=== PATIENT | female | born 1950 | race Caucasian/White ===

== ENCOUNTER 2016-11-02 11:53 | Emergency (ER) | payer OTHER ==
[~2016-11-02] VITALS: Wt 105.0 kg
[~2016-11-02 11:53] MED LIST: AMLO-218 PO; APRE1TAB2 PO; ASPI-664 PO; CHOL2000 PO; HYD25 PO; HYDR-906 PO; LEVO75TA65 PO; LOSA100T7 PO; MULTI PO; POTA20TA8 PO; TAMS0.4C2 PO
[2016-11-02] MEDS ORDERED: KETOROLAC 30 MG INJ IM STA (14:47)
[2016-11-02 15:31] LABS: ADD UMIC YES; URINE BILIRUBIN (Dip) NEGATIVE (NEGATIVE); URINE BLOOD (Dip) 1+ (NEGATIVE); URINE COLOR LT. YELLOW (YELLOW); URINE GLUCOSE (Dip) NEGATIVE (NEGATIVE); URINE KETONES (Dip) NEGATIVE (NEGATIVE); URINE LEUKOCYTE ESTERASE (Dip) TRACE (NEGATIVE); URINE NITRITE (Dip) NEGATIVE (NEGATIVE); URINE TOTAL PROTEIN (Dip) 1+ (NEGATIVE); URINE UROBILINOGEN (Dip) 0.2 E.U./dL (0.1-1.0)
--- NOTE | 2016-11-02 15:51 | RADRPT ---
PROCEDURE: CT Abdomen and Pelvis without contrast. CLINICAL INDICATION: Abdominal and pelvic pain. TECHNIQUE: CT scan of the abdomen and pelvis without contrast was performed. Coronal and sagittal reformatted images were obtained from the axial source images. Images were reviewed on a high-resolu tion PACS workstation. Total exam DLP is 982.42 mGy-cm. CTDIvol is 16.93 mGy. One or more of the f ollowing dose reduction techniques were used: Automated exposure control, adjustment of the mA and/o r kV according to patient size, use of iterative reconstruction technique. COMPARISON: 07/27/2015. FINDINGS: The lung bases are normal. There is no pleural effusion or pericardial effusion. The heart size is normal. The liver is normal in size and attenuation. There is no focal hepatic lesion. The gallbladder is surgically absent with clips noted in the gallbladder bed. The bile ducts are no rmal The spleen is enlarged. There is no focal splenic lesion. Both adrenals are normal with no enlargement or mass. The pancreas is unremarkable with no mass or evidence of pancreatitis. There is a nonobstructing 0.2 cm calculus in the upper right kidney. The left kidney is atrophic an d there are multiple nonobstructing left renal calculi with the largest in the upper left kidney odalis suring 0.5 cm. The previously noted left ureteral double pigtail stent is no longer present. There is moderate left hydronephrosis with no obstructing lesion visualized. There is no renal mass on e ither side. There is no right hydronephrosis. There is no ureteral calculus on either side. The abdominal aorta is not dilated. There is calcification in the aorta consistent with atheroscler osis. There is no retroperitoneal lymphadenopathy or mass. There is no pelvic lymphadenopathy or mass. The bladder is unremarkable with no mass or calculus. The periappendiceal region is unremarkable with no evidence of appendicitis. The appendix is not dil ated. There is diverticulosis of the sigmoid colon without evidence of diverticulitis. The bowel and mese ntery are otherwise normal. There is no free fluid or free gas. There are degenerative changes of the lower lumbar spine. There is no fracture or lytic lesion. IMPRESSION: 1. Status post cholecystectomy. 2. Splenomegaly. 3. Nonobstructing 0.2 cm calculus in the upper right kidney. 4. Of multiple nonobstructing left renal calculi with the largest superiorly measuring 0.5 cm. 5. Left ureteral stent is no longer present. 6. Moderate left hydronephrosis with no obstructing lesion visualized. 7. Atherosclerosis. 8. Diverticulosis of the sigmoid colon without evidence of diverticulitis. 9. Degenerative changes of the lower lumbar spine. 10. Otherwise unremarkable study. RPTAT: QQ .Masoud Deal MD, MD Date Time Electronically viewed and signed by .Masoud Deal MD, on 11/02/2016 15:51 .R/
[2016-11-02 16:05] LABS: SQUAMOUS EPITHELIAL CELL,UR MODERATE; URINE RBCS 0-2 /HPF (0)
--- NOTE | 2016-11-02 18:31 | ERD ---
ER Documentation Chief Complaint Date/Time DATE: 11/02/16 TIME: 18:26 Chief Complaint L FLANK PAIN SINCE THIS MORNING WITH NO HEMATURIA. NAUSEA NO VOMITING HPI Patient is a 66-year-old female with kidney stones and hypertension who presents saying "I think I have another kidney stone". She says that she started with left-sided abdominal pain and left-sided flank pain today this morning. She said the pain is been constant and sharp in nature. She tried exercise and Tylenol. She has required lithotripsy in the past by Dr. Del Toro. ROS All systems reviewed and are negative except as per history of present illness. Medications Home Meds Reported Medications Hydrocodone/Acetaminophen ([place] 5-325 Tablet) 1 Each Tablet, 1 EACH PO Q4 Y for PAIN, #40 TAB 06/03/16 Tamsulosin Hcl* (Tamsulosin Hcl*) 0.4 Mg Cap.er.24h, 0.4 MG PO DAILY, CAP 06/02/16 Multivitamins* (Theragran*) 1 Tab Tab, 1 TAB PO DAILY, TAB 06/02/16 Cholecalciferol* (Vitamin D3*) 2,000 Unit Cap, 2000 UNIT PO DAILY, CAP 09/05/15 Hydrochlorothiazide* (Hydrochlorothiazide*) 25 Mg Tab, 25 MG PO DAILY, #30 TAB 09/05/15 Amlodipine Besylate* (Norvasc*) 10 Mg Tablet, 10 MG PO DAILY, TAB 07/27/15 Levothyroxine Sodium* (Levoxyl*) 75 Mcg Tablet, 75 MCG PO AC BREAKFAST, TAB 07/27/15 Potassium Chloride* (Klor-Con*) 10 Meq Tabsr, 10 MEQ PO DAILY, TAB.SA 07/27/15 Aspirin* (Aspirin* (EC)) 81 Mg Tablet.dr, 81 MG PO DAILY, TAB 07/27/15 Losartan Potassium* (Losartan Potassium*) 100 Mg Tablet, 100 MG PO DAILY, TAB 07/27/15 Apremilast (Otezla) 1 Each Tab.ds.pk, 30 MG PO BID 07/27/15 Allergies Allergies: Coded Allergies: levofloxacin (Verified Allergy, Unknown, 07/02/16) PMhx/Soc History of Surgery: Yes (GALLBLADDER/KIDNEY STONES X3/COLON SX) Anesthesia Reaction: No Hx Neurological Disorder: No Hx Respiratory Disorders: No Hx Psychiatric Problems: No Hx Miscellaneous Medical Probl: No Hx Alcohol Use: No Hx Substance Use: No Hx Tobacco Use: No Smoking Status: Never smoker FmHx Family History: diabetes Physical Exam Vitals Vital Signs Date Time Temp Pulse Resp B/P Pulse Ox O2 Delivery O2 Flow Rate FiO2 11/02/16 12:04 98.6 73 20 188/73 95 Physical Exam Const: No acute distress Head: Atraumatic Eyes: Normal Conjunctiva ENT: Normal External Ears, Nose and Mouth. Neck: Full range of motion..~ No meningismus. Resp: Clear to auscultation bilaterally Cardio: Regular rate and rhythm, no murmurs Abd: Soft, left-sided flank abdominal pain with palpation without rebound or guarding Skin: No petechiae or rashes Back: No midline or flank tenderness Ext: No cyanosis, or edema Neur: Awake and alert Psych: Normal Mood and Affect Results 24 hrs Laboratory Tests Test 11/02/16 15:05 Urine Amorphous Urates MODERATE Urine Bilirubin NEGATIVE Urine Clarity SLIGHTLY CLOUDY Urine Color LT. YELLOW Urine Glucose NEGATIVE% Urine Hemoglobin 1+ Urine Ketones NEGATIVE Urine Leukocyte Esterase TRACE Urine Microscopic RBC 0-2/HPF Urine Microscopic WBC 2-5/HPF Urine Nitrite NEGATIVE Urine Specific [place] 1.015 Urine Squamous Epithelial Cells MODERATE Urine Total Protein 1+ Urine Urobilinogen 0.2 E.U./dL Urine pH 6.5 Current Medications Medications (Trade) Dose Ordered Sig/Beni Route PRN Reason Start Time Stop Time Status Last Admin Dose Admin Ketorolac Tromethamine (Toradol) 30 mg ONCE STAT IM 11/02/16 14:47 11/02/16 14:49 DC 11/02/16 15:12 Procedures/MDM CT scan shows moderate left-sided hydronephrosis with no obvious obstructing process per radiology. Urinalysis shows no obvious urinary tract infection. Urine culture was sent and is pending. Patient is a 66-year-old female presents with left-sided flank pain. CT scan shows hydronephrosis but I doubt pyelonephritis given her urinalysis results. Urine culture is pending however. The patient feels better after Toradol. It is also possible that she had a passed stone. She will need to follow-up with her primary doctor and with her urologist Dr. Del Toro. She can return for any worsening symptoms. At this point I doubt appendicitis, cholecystitis, pancreatitis, or bowel obstruction. She says that she has [place] at home. Departure Diagnosis: Primary Impression: Flank pain Additional Impression: Abdominal pain Abdominal location: left upper quadrant Qualified Code: R10.12 - Left upper quadrant pain Condition: Fair Patient Instructions: Abdominal Pain, Flank Pain, Uncertain Cause Referrals: CRISTIAN DEL TORO MD Additional Instructions: Call your primary care doctor TOMORROW for an appointment during the next 1-2 days.See the doctor sooner or return here if your condition worsens before your appointment time. MALU ESCUDERO MD Nov 02, 2016 18:31
== END 2016-11-02 16:10 | disposition home or self-care (01) ==
LOC: E/R 11:53
DX: R10.12 Left upper quadrant pain (principal); I10 Essential (primary) hypertension; E03.9 Hypothyroidism, unspecified; Z79.82 Long term (current) use of aspirin
CPT/HCPCS: 74176; 81001; 87086; 96372; 99285; J1885; 81003

== ENCOUNTER 2017-10-28 12:10 | Inpatient (IN) | END 2017-11-01 13:23 | disposition home or self-care (01) | DRG 660 ==

== ENCOUNTER 2018-04-07 05:13 | Emergency (ER) | END 2018-04-07 09:06 | disposition home or self-care (01) ==

== ENCOUNTER 2018-07-20 22:35 | Emergency (ER) | END 2018-07-21 06:00 | disposition home or self-care (01) ==

== ENCOUNTER 2018-11-14 10:04 | Emergency (ER) | payer OTHER ==
[~2018-11-14] VITALS: Ht 172.7 cm; Wt 106.8 kg
[~2018-11-14 10:04] MED LIST changes: +AMOX1TAB10 PO; +ASPI-1046 PO; -ASPI-664 PO; +CIPR500T4 PO; +FER325 PO; +GLUC-126 PO; -HYD25 PO; +HYDR-4011 PO; -HYDR-906 PO; +HYDR25TA6 PO; +LOSA100T15 PO; -LOSA100T7 PO; +TAMS-14 PO
[2018-11-14 10:07] VITALS: Ht 172.7 cm; Wt 106.8 kg
--- NOTE | 2018-11-14 10:52 | ERD ---
ER Documentation Chief Complaint Chief Complaint left side flank pain x this am denies pain with urination HX kidney stone HPI This is a 68-year-old woman with a long history of chronic nonobstructing renal stones as well as bilateral ureter stones requiring ablation therapy presenting with left flank pain and dysuria beginning this morning. She denies fevers or chills, no vomiting, no chest pain or shortness of breath, no trauma. ROS All systems reviewed and are negative except as per history of present illness. Medications Home Meds Active Scripts Naproxen* (Naprosyn*) 500 Mg Tablet, 500 MG PO BID PRN for PAIN AND/OR INFLAMMATION, #30 TAB Prov:HECTOR GONSALEZ MD 11/14/18 Cephalexin* (Cephalexin*) 500 Mg Capsule, 500 MG PO QID for 7 Days, #28 CAP Prov:HECTOR GONSALEZ MD 11/14/18 Reported Medications Glucosam/Msm/Chond/Bosw/Hyalur ([id number] CAPLET) 1 Each Tab.er.12h, 1 EACH PO DAILY, TAB 04/18/17 Tamsulosin Hcl* (Tamsulosin Hcl*) 0.4 Mg Cap.er.24h, 0.4 MG PO DAILY, CAP 06/02/16 Multivitamins* (Theragran*) 1 Tab Tab, 1 TAB PO DAILY, TAB 06/02/16 Cholecalciferol* (Vitamin D3*) 2,000 Unit Cap, 2000 UNIT PO DAILY, CAP 09/05/15 Hydrochlorothiazide* (Hydrochlorothiazide*) 25 Mg Tab, 25 MG PO DAILY, #30 TAB 09/05/15 Amlodipine Besylate* (Norvasc*) 10 Mg Tablet, 10 MG PO DAILY, TAB 07/27/15 Levothyroxine Sodium* (Levoxyl*) 75 Mcg Tablet, 75 MCG PO AC BREAKFAST, TAB 07/27/15 Potassium Chloride* (Klor-Con*) 10 Meq Tabsr, 10 MEQ PO DAILY, TAB.SA 07/27/15 Aspirin* (Aspirin* (EC)) 81 Mg Tablet.dr, 81 MG PO DAILY, TAB 07/27/15 Losartan Potassium* (Losartan Potassium*) 100 Mg Tablet, 100 MG PO DAILY, TAB 07/27/15 Apremilast (Otezla) 1 Each Tab.ds.pk, 30 MG PO BID 07/27/15 Discontinued Scripts Hydrocodone/Acetaminophen ([place] 5-325 Tablet) 1 Each Tablet, 1 TAB PO Q6H PRN for PAIN, #10 TAB Prov:ANURADHA FRIEND MD 07/21/18 Tamsulosin Hcl* (Flomax*) 0.4 Mg Cap.er.24h, 0.4 MG PO QPM, #7 CAP Prov:LORETA RAMIREZ DO 04/07/18 Ciprofloxacin Hcl* (Ciprofloxacin Hcl*) 500 Mg Tablet, 500 MG PO BID for 7 Days, TAB Prov:GOMEZ RAMIREZS Erasmo DO 04/07/18 Amoxicillin/Potassium Clav (Amox-Clav 875-125 mg Tablet) 875-125 mg Tab, 1 TAB PO BID, #12 TAB Prov:CHRISTIANO MARTIN 11/01/17 Ferrous Sulfate* (Ferrous Sulfate*) 325 Mg Tabec, 325 MG PO BID for 30 Days, #60 TAB 2 Refills Prov:CHRISTIANO MARTIN 11/01/17 Allergies Allergies: Coded Allergies: levofloxacin (Unverified Allergy, Unknown, 11/14/18) PMhx/Soc History of kidney stones, hypertension, hypothyroidism, sleep apnea, left ear tumor, hepatitis C, history of cholecystectomy and abdominal tumor surgery History of Surgery: Yes (KIDNEY STONES(MULIPLE), GALLBLADDER, ABD TUMOR) Anesthesia Reaction: No Hx Neurological Disorder: No Hx Respiratory Disorders: Yes (SLEEP APNEA) Hx Cardiac Disorders: Yes (htn) Hx Psychiatric Problems: No Hx Miscellaneous Medical Probl: Yes (kidney stones, DM) Hx Alcohol Use: No Hx Substance Use: No Hx Tobacco Use: No FmHx Family History: No diabetes Physical Exam Vitals Vital Signs Date Temp Pulse Resp B/P (MAP) Pulse Ox O2 O2 Flow FiO2 Time Delivery Rate 11/14/18 76 16 106/61 97 12:41 (76) 11/14/18 98.2 96 18 132/62 93 10:07 (85) Physical Exam GENERAL: Well-developed, well-nourished, well-hydrated, in no apparent distress, looks nontoxic in appearance, afebrile NEURO: Alert and oriented 3, cranial nerves II through XII intact bilaterally, pupils equal round reactive to light, no focal deficits or facial asymmetry, sensation intact distally Strength 5/5 in upper and lower extremities bilateral ly CARDIAC: Regular rate and rhythm, no murmurs rubs or gallops LUNGS: Clear bilaterally no wheezing crackles or stridor ABDOMEN: Soft nontender, no guarding, no rigidity, no rebound, no psoas sign no obturator sign. Normoactive bowel sounds EXTREMITIES: No clubbing cyanosis or edema, calves are bilaterally symmetrical, no Homans sign, no popliteal cord sign. Distal pulses equal and bilateral PSYCH: Normal affect without agitation or irritability Result Diagram: 11/14/18 1045 11/14/18 1045 Results 24 hrs Laboratory Tests Test 11/14/18 10:45 White Blood Count 17.0 10^3/ul Red Blood Count 5.15 10^6/ul Hemoglobin 12.8 g/dl Hematocrit 41.4 % Mean Corpuscular Volume 80.4 fl Mean Corpuscular Hemoglobin 24.9 pg Mean Corpuscular Hemoglobin Concent 30.9 g/dl Red Cell Distribution Width 16.4 % Platelet Count 163 10^3/UL Mean Platelet Volume 10.4 fl Immature Granulocytes % 0.900 % Neutrophils % 91.3 % Lymphocytes % 1.5 % Monocytes % 5.9 % Eosinophils % 0.1 % Basophils % 0.3 % Nucleated Red Blood Cells % 0.0 /100WBC Immature Granulocytes # 0.160 10^3/ul Neutrophils # 15.5 10^3/ul Lymphocytes # 0.3 10^3/ul Monocytes # 1.0 10^3/ul Eosinophils # 0.0 10^3/ul Basophils # 0.1 10^3/ul Nucleated Red Blood Cells # 0.0 10^3/ul Urine Color MEERA Urine Clarity CLOUDY Urine pH 5.0 Urine Specific [place] 1.024 Urine Ketones TRACE mg/dL Urine Nitrite NEGATIVE mg/dL Urine Bilirubin NEGATIVE mg/dL Urine Urobilinogen 1+ mg/dL Urine Leukocyte Esterase 1+ [place]ven[place]/ul Urine Microscopic RBC 5 /HPF Urine Microscopic WBC 65 /HPF Urine Squamous Epithelial Cells MANY /HPF Urine Bacteria MODERATE /HPF Urine Mucus MANY /HPF Urine Hemoglobin NEGATIVE mg/dL Urine Glucose NEGATIVE mg/dL Urine Total Protein 2+ mg/dl Sodium Level 142 mmol/L Potassium Level 3.9 mmol/L Chloride Level 102 mmol/L Carbon Dioxide Level 28 mmol/L Anion Gap 12 Blood Urea Nitrogen 29 mg/dl Creatinine 0.94 mg/dl Est Glomerular Filtrat Rate mL/min 59 mL/min Glucose Level 195 mg/dl Calcium Level 10.2 mg/dl Current Medications Medications Dose Sig/Beni Start Time Status Last (Trade) Ordered Route PRN Stop Time Admin Dose Reason Admin Sodium 500 ml @ Q1H STAT 11/14/18 DC 11/14/18 Chloride 500 mls/hr IV 11:00 12:13 11/14/18 11:59 Ketorolac 15 mg ONCE STAT 11/14/18 DC 11/14/18 Tromethamine IV 11:00 12:13 (Toradol) 11/14/18 11:03 Ceftriaxone 50 ml @ ONCE ONCE 11/14/18 DC 11/14/18 Sodium 100 mls/hr IVPB 12:00 12:13 11/14/18 12:29 Oxycodone/ 1 tab ONCE ONCE 11/14/18 DC 11/14/18 Acetaminophen PO 12:30 12:40 (Percocet 11/14/18 12:31 (5/ 325)) Procedures/MDM IV line was established patient was placed on media monitor rhythm strip rev ealed a sinus rhythm at about 80 bpm with upright P and T waves. Patient was afebrile, urine cultures have been ordered results are pending I will follow-up. I administered 500 cc normal saline IV and Toradol 15 mg IV, I later gave her Percocet 1 tablet p.o. CBC reveals leukocytosis, electrolytes revealed dehydration with a BUN/creatinine of 29/0.9, urine analysis positive for infection. I spoke to the patient about the need for CT imaging although she refused because she has had multiple CT scans in the past and does not want any further radiation, and is worried about developing cancer Bilateral renal ultrasound was performed there is left-sided hydronephrosis which is unchanged compared to prior exam, no ureter stones noted, please refer to radiologist dictation for full report. I spoke to urologist Dr. Del Toro regarding the patient's labs, leukocytosis, imaging studies, and symptoms. He recommended KUB study, as patient refused CT scan. KUB was performed that did not reveal evidence for ureteral calculi although kidney stones were definitely present, consistent with her history. I did speak to the patient after complete workup in the ED and told her about the ultrasound results and equivocal KUB study and she preferred outpatient management with analgesics and oral antibiotics, she stated if her symptoms got worse or if she developed a fever she would return. I find this acceptable and we agreed to plan. Differential diagnoses considered, included but not limited to acute coronary syndrome, pulmonary embolism, aortic dissection, abdominal aortic aneurysm, sep sis, stroke, meningitis, encephalitis, pneumonia, appendicitis, cholecystitis, bowel obstruction, pyelonephritis, nephrolithiasis, cystitis, as well as metabolic, hematologic, and electrolyte abnormalities. As well as abscess, cellulitis, fractures, and dislocations. Patient feels much better at this time, and vital signs are normal, symptoms have improved. I did give strict instructions to return to the ED if symptoms continue or worsen, patient will otherwise follow-up with primary care physi jay. Patient understood instructions and agreed to plan. Disclaimer: Inadvertent spelling and grammatical errors are likely due to EHR/dictation software use and do not reflect on the overall quality of patient care. Also, please note that the electronic time recorded on this note does not necessarily reflect the actual time of the patient encounter. Departure Diagnosis: Primary Impression: Acute UTI Additional Impressions: Kidney stones Hydronephrosis Hydronephrosis type: unspecified Qualified Codes: N13.30 - Unspecified hydronephrosis Condition: HECTOR Merida MD Nov 14, 2018 10:52
[2018-11-14] MEDS ORDERED: SOD CHLORIDE 0.9% 500 ML IV STA (11:00)
[2018-11-14] MEDS ORDERED: KETOROLAC 15 MG INJ IV STA (11:00)
[2018-11-14] MEDS ORDERED: CEFTRIAXONE 1 GM/50 ML (PMX) 50 ML IVPB ONE (12:00)
[2018-11-14] MEDS ORDERED: NAPR-985 PO (12:19)
[2018-11-14] MEDS ORDERED: CEPH500C PO (12:19)
[2018-11-14] MEDS ORDERED: OXYCODONE/ACETAMINOPHEN (5/325) TAB PO ONE (12:30)
[2018-11-14 14:10] VITALS: BP 105/55; PULSE 76; RESP 16
== END 2018-11-14 14:10 | disposition home or self-care (01) ==
LOC: E/R 10:04
DX: N39.0 Urinary tract infection, site not specified (principal); N20.0 Calculus of kidney; N13.30 Unspecified hydronephrosis; I10 Essential (primary) hypertension; E03.9 Hypothyroidism, unspecified; E11.9 Type 2 diabetes mellitus without complications; Z79.82 Long term (current) use of aspirin
CPT/HCPCS: 36415; 74018; 76775; 80048; 81001; 85025; 87086; 96374; 96375; 99285; J0696; J1885; J7040

== ENCOUNTER 2018-11-17 00:55 | Inpatient (IN) | payer OTHER ==
[~2018-11-17] VITALS: Ht 157.5 cm; Wt 106.9 kg
[~2018-11-17 00:55] MED LIST changes: -AMOX1TAB10 PO; +CEPH500C PO; -CIPR500T4 PO; -FER325 PO; -HYDR-4011 PO; +NAPR-985 PO; -TAMS-14 PO
[2018-11-17] MEDS ORDERED: morphine 4 MG/ML VIAL IV STA (01:39)
[2018-11-17] MEDS ORDERED: ONDANSETRON 4 MG INJ IV STA (01:39)
[2018-11-17] MEDS ORDERED: SOD CHLORIDE 0.9% 1,000 ML IV STA (01:39)
[2018-11-17] MEDS ORDERED: CEFTRIAXONE 1 GM/50 ML (PMX) 50 ML IVPB ONE (02:00)
[2018-11-17] MEDS ORDERED: DIPHENHYDRAMINE 50 MG INJ IV ONE (03:30)
[2018-11-17] MEDS ORDERED: AZTREONAM 1 GM/NS (PMX) 50 ML IVPB ONE (03:30)
[2018-11-17] MEDS ORDERED: FERR324T4 PO (04:34)
[2018-11-17] MEDS ORDERED: ACETAMINOPHEN 325 MG TAB PO PRN (05:00)
[2018-11-17] MEDS ORDERED: ONDANSETRON 4 MG INJ IV PRN (05:00)
--- NOTE | 2018-11-17 05:09 | HP ---
Date/Time of Note Date/Time of Note DATE: 11/17/18 TIME: 05:09 Assessment/Plan VTE Prophylaxis SCD applied (from Nsg): Yes Pharmacological prophylaxis: NA/contraindicated Pharm contraindication: low risk/ambulating Lines/Catheters IV Catheter Type (from Nrsg): Saline Lock Assessment/Plan Hospital Course This is a 68-year-old female being admitted to the [facility] floor for: #1 obstructive uropathy: Secondary to [address] scan shows 1cm obstructing left ureter vesicle junction calcified calculus with severe left hydronephrosis and hydroureter. Patient creatinine did rise from 0.94-1.91. At the current time will provide IV fluid hydration with normal saline. Flomax. Will consult urology #2 acute kidney injury: Secondary to obstructive uropathy and/or ARB.. IV fluid hydration at the current time, Flomax, will hold ARB and HCTZ at the current t jean paul. Monitor renal function. Consult urology for likely stone lithotripsy versus stent placement. #3 complicated UTI: Secondary to infected obstructing kidney stone. She did receive ceftriaxone and aztreonam in the ED. Given that she had multidrug- resistant organisms in her previous urine cultures, at the current time we will start the patient on meropenem renally dose. Await urine cultures. #4 Microcytic anemia: We will check iron stores #5 hypothyroidism: We will continue levothyroxine, check TSH 6 hypertension: At the current time will hold ARB and HCTZ given patient's AK I. Will resume Norvasc with parameters for blood pressure #7 morbid obesity: We will check hemoglobin A 1C, lipid panel, TSH #8 DVT GI prophylaxis: SCDs, no GI prophylaxis indicated Further treatment strategy will be implemented for clinical course Result Diagram: 11/17/18 0214 11/17/18 0214 Results 24hrs Laboratory Tests Test 11/17/18 01:59 11/17/18 02:14 Urine Color MEERA Urine Clarity CLOUDY A Urine pH 5.0 Urine Specific Bowler 1.019 Urine Ketones NEGATIVE Urine Nitrite NEGATIVE Urine Bilirubin NEGATIVE Urine Urobilinogen 2+ H Urine Leukocyte Esterase 2+ H Urine Microscopic RBC 5 Urine Microscopic WBC > 182 H Urine Squamous Epithelial Cells FEW Urine Bacteria FEW A Urine Mucus FEW A Urine Hemoglobin 1+ H Urine Glucose NEGATIVE Urine Total Protein 1+ H White Blood Count 9.8 # Red Blood Count 4.38 Hemoglobin 11.0 L Hematocrit 35.0 L Mean Corpuscular Volume 79.9 L Mean Corpuscular Hemoglobin 25.1 L Mean Corpuscular Hemoglobin Concent 31.4 L Red Cell Distribution Width 16.4 H Platelet Count 114 #L Mean Platelet Volume 10.8 H Immature Granulocytes % 0.800 H Neutrophils % 86.4 H Lymphocytes % 5.1 L Monocytes % 6.3 Eosinophils % 1.0 Basophils % 0.4 Nucleated Red Blood Cells % 0.0 Immature Granulocytes # 0.080 H Neutrophils # 8.4 H Lymphocytes # 0.5 L Monocytes # 0.6 Eosinophils # 0.1 Basophils # 0.0 Nucleated Red Blood Cells # 0.0 Sodium Level 139 Potassium Level 3.4 L Chloride Level 99 Carbon Dioxide Level 28 Anion Gap 12 Blood Urea Nitrogen 51 H Creatinine 1.91 H Est Glomerular Filtrat Rate mL/min 26 L Glucose Level 158 Calcium Level 9.3 HPI/ROS Admit Date/Time Admit Date/Time Hx of Present Illness cc: left flank pain x 4 days This is a 68-year-old female with known history of nephrolithiasis and ureterolithiasis who presents to the emergency room with persistent left-sided flank pain for 4 days. The pain is 6 out of 10 and colicky but more constant. The patient was seen here several days ago and started on an antibiotic, Keflex. The patient's symptoms have persisted despite being on Keflex. Allergies: Ceftriaxone, Levaquin Medications: See ARTHUR Const: As per HPI Eyes : No pain discharge or redness or change in visual acuity ENT: No pain, sore throat, congestion, congestion, dysphagia or discharge Respiratory: No shortness of breath, cough, sputum, wheezing, or pleuritic pain Cardiovascular: No chest pain, palpitation, PND, or edema GI : no change in appetite, abdominal pain, nausea, vomiting, diarrhea, constipation, or change in the color his stool Genitourinary: As per HPI Musculoskeletal: As per HPI Skin: No rash, bruising or hives Neuro: No headache, dizziness, syncope, seizure, focal weakness Endocrine: No polyuria, polydipsia, temperature intolerance Psych: No hallucination, depression, anxiety or suicidal ideation PMH/Family/Social Past Medical History Hypertension, hypothyroidism, anemia, history of kidney stones Medications Current Medications Ondansetron HCl (Zofran Inj) 4 mg BRIDGE ORDER PRN IV NAUSEA/VOMITING; Start 11/17/18 at 05:00; Stop 11/18/18 at 04:59 Acetaminophen (Tylenol Tab) 650 mg ER BRIDGE PRN PO .MILD PAIN 1-3 OR TEMP; Start 11/17/18 at 05:00; Stop 11/18/18 at 04:59 Coded Allergies: ceftriaxone (Verified Allergy, Unknown, rash, itch, 11/17/18) levofloxacin (Unverified Allergy, Unknown, 11/17/18) Past Surgical History Multiple laser lithotripsies, benign tumor removal, cholecystectomy Family History Significant Family History: no pertinent family hx, other Social History Alcohol Use: none Smoking Status: Unknown if ever smoked Drug Use: none Exam/Review of Systems Vital Signs Vitals Vital Signs Date Temp Pulse Resp B/P (MAP) Pulse Ox O2 O2 Flow FiO2 Time Delivery Rate 11/17/18 97.8 87 18 100/52 94 Room Air 05:02 (68) Intake and Output 11/16/18 11/16/18 11/17/18 1515:00 23:00 07:00 IntakeIntake Total 15 ml BalanceBalance 15 ml Exam Exam General: Patient is a pleasant female currently lying in bed in mild distress from left flank pain HEENT: Atraumatic, normocephalic. The pupils are equal, round and reactive. Extraocular motor are intact Neck: Supple with full range of motion. No rigidity or meningismus Chest: Nontender Lungs: Clear to auscultation bilaterally no crackles rales or wheezing Heart: Normal S1-S2, Regular rhythm and rate. No murmur, S3, or S4 Abdomen: Left CVA tenderness to palpation,, morbidly obese, soft nondistended , bowel sounds are present. No guarding no rebound tenderness , No masses or organomegaly. Extremities: Normal to inspection, no edema no cyanosis Neurologic: Normal mental status, speech normal, cranial nerves II through XII are intact, motor and sensory are intact, no focal weakness Additional Comments PROCEDURE: CT Abdomen and pelvis without contrast. CLINICAL INDICATION: Left flank pain. TECHNIQUE: CT scan of the abdomen and pelvis without contrast was performed on a multidetector high-resolution CT scan. . Coronal and sagittal reformatted images were obtained from the axial source images. Standard CT scan of the abdomen pelvis without contrast protocols were performed. The total exam CTDI equals 23.4. mGy and the total exam DLP equals 1392.36 mGy- cm. One or more of the following dose reduction techniques were used: - Automated exposure control. - Adjustment of the mA and/or kV according to patient size. Use of iterative reconstruction technique. Dicom images are available COMPARISON: CT abdomen pelvis 04/07/2018 FINDINGS: There is a 1 cm obstructing left ureter vesicle junction calcified calculus with severe left hydroureter and hydronephrosis. There are multiple small nonobstructing left renal calcified calculi. Multiple coarse left renal cortical calcifications that are unchanged. Multiple small nonobstructing right renal calcified calculi the largest in the right renal pelvis measuring 5 mm that appear unchanged. No other evidence of intra renal masses. No right ureteral calcified calculi or dilatation. Contracted otherwise unremarkable urinary bladd er. Anteverted anteflexed otherwise unremarkable uterus. No adnexal masses. Diverticulosis of the mid to proximal sigmoid and distal descending colon without CT evidence of diverticulitis. Stomach, small bowel and appendix are unremarkable. Small free fluid in the left lower abdominal cavity. No intra-abdominal free air abscesses or lymphadenopathy. Status post prior cholecystectomy. No evidence of biliary ductal dilation. Moderate splenomegaly. No focal splenic lesions. Hepatic fatty infiltration without focal hepatic lesions. Pancreas and adrenal glands are unremarkable. Coronary artery disease. Left basilar parenchymal change consistent with atelectasis. Small left pleural effusion. Atherosclerosis of the aorta without aneurysm. Abdominal pelvic wall unremarkable. Degenerative changes of the lower thoracic and lumbar spine without acute osseous findings are osteoblastic/osteolytic lesion. Mild levorotatory scoliosis of the lumbar spine. IMPRESSION: 1. 1 cm obstructing left ureter vesicle junction calcified calculus with severe left hydronephrosis and hydroureter. 2. No change in the left renal nonobstructing calculi and cortical nephroliths. 3. No change in the multiple right renal nonobstructing calcified calculi. No right obstructive uropathy. 4. Left-sided colonic diverticulosis without CT evidence of diverticulitis. 5. Small free fluid in the left lower quadrant of the abdomen. No evidence of abscess or free air. 6. Status post prior cholecystectomy without biliary ductal dilation. 7. Stable moderate splenomegaly. 8. Small left pleural effusion. Left basilar consolidation l consistent with atelectasis. RPTAT:AAJJ Hugo Singh Physician Date Time Electronically viewed and signed by Hugo Singh Physician on 11/17/2018 04:39 BM/ CC: RAFAEL DAO MD [id number] SOTERO [place] Nov 17, 2018 05:09
--- NOTE | 2018-11-17 05:22 | ERD ---
ER Documentation Chief Complaint Chief Complaint flank pain x4 days,nausea,hx kidney stones HPI 68-year-old female with known history of nephrolithiasis and ureterolithiasis who presents to the emergency room with persistent left-sided flank pain for 4 days. The pain is 6 out of 10 and colicky but more constant. The patient was s een here several days ago and started on an antibiotic, Keflex. The patient describes persistent symptoms despite this antibiotic. ROS All systems reviewed and are negative except as per history of present illness. Medications Home Meds Active Scripts Naproxen* (Naprosyn*) 500 Mg Tablet, 500 MG PO BID PRN for PAIN AND/OR INFLAMMATION, #30 TAB Prov:HECTOR GONSALEZ MD 11/14/18 Cephalexin* (Cephalexin*) 500 Mg Capsule, 500 MG PO QID for 7 Days, #28 CAP Prov:HECTOR GONSALEZ MD 11/14/18 Reported Medications Ferrous Sulfate (Ferrous Sulfate) 324 Mg Tablet.dr, 324 MG PO BID for 90 Days, #180 11/17/18 Glucosam/Msm/Chond/Bosw/Hyalur ([id number] CAPLET) 1 Each Tab.er .12h, 1 EACH PO DAILY, TAB 04/18/17 Tamsulosin Hcl* (Tamsulosin Hcl*) 0.4 Mg Cap.er.24h, 0.4 MG PO DAILY, CAP 06/02/16 Multivitamins* (Theragran*) 1 Tab Tab, 1 TAB PO DAILY, TAB 06/02/16 Cholecalciferol* (Vitamin D3*) 2,000 Unit Cap, 2000 UNIT PO DAILY, CAP 09/05/15 Hydrochlorothiazide* (Hydrochlorothiazide*) 25 Mg Tab, 25 MG PO DAILY, #30 TAB 09/05/15 Amlodipine Besylate* (Norvasc*) 10 Mg Tablet, 10 MG PO DAILY, TAB 07/27/15 Levothyroxine Sodium* (Levoxyl*) 75 Mcg Tablet, 75 MCG PO AC BREAKFAST, TAB 07/27/15 Potassium Chloride* (Klor-Con*) 10 Meq Tabsr, 10 MEQ PO DAILY, TAB.SA 07/27/15 Aspirin* (Aspirin* (EC)) 81 Mg Tablet., 81 MG PO DAILY, TAB 07/27/15 Losartan Potassium* (Losartan Potassium*) 100 Mg Tablet, 100 MG PO DAILY, TAB 07/27/15 Apremilast (Otezla) 1 Each Tab.ds.pk, 30 MG PO BID 07/27/15 Discontinued Scripts Hydrocodone/Acetaminophen ([place] 5-325 Tablet) 1 Each Tablet, 1 TAB PO Q6H PRN for PAIN, #10 TAB Prov:ANURADHA FRIEND MD 07/21/18 Tamsulosin Hcl* (Flomax*) 0.4 Mg Cap.er.24h, 0.4 MG PO QPM, #7 CAP Prov:LORETA RAMIREZ DO 04/07/18 Ciprofloxacin Hcl* (Ciprofloxacin Hcl*) 500 Mg Tablet, 500 MG PO BID for 7 Days, TAB Prov:LORETA RAMIREZ DO 04/07/18 Amoxicillin/Potassium Clav (Amox-Clav 875-125 mg Tablet) 875-125 mg Tab, 1 TAB PO BID, #12 TAB Prov:CHRISTIANO MARTIN 11/01/17 Ferrous Sulfate* (Ferrous Sulfate*) 325 Mg Tabec, 325 MG PO BID for 30 Days, #60 TAB 2 Refills Prov:CHRISTIANO MARTIN 11/01/17 Allergies Allergies: Coded Allergies: ceftriaxone (Verified Allergy, Unknown, rash, itch, 11/17/18) levofloxacin (Unverified Allergy, Unknown, 11/17/18) PMhx/Soc History of Surgery: Yes (kidney stones removal, cholecysytectomy, abd tumor) Anesthesia Reaction: No Hx Neurological Disorder: No Hx Respiratory Disorders: Yes (sleep apnea) Hx Cardiac Disorders: Yes (HTN) Hx Psychiatric Problems: No Hx Miscellaneous Medical Probl: Yes (kidney stones,diabetes,hep C) Hx Alcohol Use: Yes (occasionally) Hx Substance Use: No Hx Tobacco Use: Yes (quit 2003) Smoking Status: Former smoker FmHx Family History: No diabetes Physical Exam Vitals Vital Signs Date Temp Pulse Resp B/P (MAP) Pulse Ox O2 O2 Flow FiO2 Time Delivery Rate 11/17/18 97.8 87 18 100/52 94 Room Air 05:02 (68) 11/17/18 86 18 109/54 94 Room Air 03:01 (72) 11/17/18 85 14 101/50 94 Room Air 02:02 (67) 11/17/18 90 13 104/56 95 Room Air 01:30 (72) 11/17/18 97.8 90 18 127/62 96 01:11 (83) Physical Exam General: Well developed, well nourished, no acute distress Head: Normocephalic, atraumatic. Eyes: Pupils equally reactive, EOM intact ENT: Moist mucous membranes Neck: Supple, no lymphadenopathy Respiratory: Lungs clear bilaterally, no distress Cardiovascular: RRR, no murmurs, rubs, or gallops Abdominal: Soft, non-tender, non-distended, no peritoneal signs : Deferred MSK: No edema, no unilateral swelling, 5/5 strength Neurologic: Alert and oriented, moving all extremities, normal speech, no focal weakness, no cerebellar signs Skin: No rash Psych: Normal mood Result Diagram: 11/17/1821311/17/18213 Results 24 hrs Laboratory Tests Test 11/17/18 01:59 11/17/18 02:14 Urine Color MEERA Urine Clarity CLOUDY Urine pH 5.0 Urine Specific Spelter 1.019 Urine Ketones NEGATIVE mg/dL Urine Nitrite NEGATIVE mg/dL Urine Bilirubin NEGATIVE mg/dL Urine Urobilinogen 2+ mg/dL Urine Leukocyte Esterase 2+ Juvenal/ul Urine Microscopic RBC 5 /HPF Urine Microscopic WBC > 182 /HPF Urine Squamous Epithelial Cells FEW /HPF Urine Bacteria FEW /HPF Urine Mucus FEW /HPF Urine Hemoglobin 1+ mg/dL Urine Glucose NEGATIVE mg/dL Urine Total Protein 1+ mg/dl White Blood Count 9.8 10^3/ul Red Blood Count 4.38 10^6/ul Hemoglobin 11.0 g/dl Hematocrit 35.0 % Mean Corpuscular Volume 79.9 fl Mean Corpuscular Hemoglobin 25.1 pg Mean Corpuscular Hemoglobin Concent 31.4 g/dl Red Cell Distribution Width 16.4 % Platelet Count 114 10^3/UL Mean Platelet Volume 10.8 fl Immature Granulocytes % 0.800 % Neutrophils % 86.4 % Lymphocytes % 5.1 % Monocytes % 6.3 % Eosinophils % 1.0 % Basophils % 0.4 % Nucleated Red Blood Cells % 0.0 /100WBC Immature Granulocytes # 0.080 10^3/ul Neutrophils # 8.4 10^3/ul Lymphocytes # 0.5 10^3/ul Monocytes # 0.6 10^3/ul Eosinophils # 0.1 10^3/ul Basophils # 0.0 10^3/ul Nucleated Red Blood Cells # 0.0 10^3/ul Sodium Level 139 mmol/L Potassium Level 3.4 mmol/L Chloride Level 99 mmol/L Carbon Dioxide Level 28 mmol/L Anion Gap 12 Blood Urea Nitrogen 51 mg/dl Creatinine 1.91 mg/dl Est Glomerular Filtrat Rate mL/min 26 mL/min Glucose Level 158 mg/dl Calcium Level 9.3 mg/dl Current Medications Medications Dose Sig/Beni Start Time Status Last (Trade) Ordered Route PRN Stop Time Admin Dose Reason Admin Sodium 1,000 ml @ Q1H STAT 11/17/18 DC 11/17/18 Chloride 1,000 mls/hr IV 01:39 02:44 11/17/18 02:38 Morphine 4 mg ONCE STAT 11/17/18 DC 11/17/18 Sulfate IV 01:39 02:45 (morphine) 11/17/18 01:41 Ondansetron 4 mg ONCE STAT 11/17/18 DC 11/17/18 HCl (Zofran IV 01:39 02:45 Inj) 11/17/18 01:41 Ceftriaxone 50 ml @ ONCE ONCE 11/17/18 DC 11/17/18 Sodium 100 mls/hr IVPB 02:00 02:45 11/17/18 02:29 25 mg ONCE ONCE 11/17/18 DC 11/17/18 Diphenhydrami IV 03:30 03:11 ne HCl 11/17/18 03:31 (Benadryl) Aztreonam 50 ml @ ONCE ONCE 11/17/18 DC 11/17/18 100 mls/hr IVPB 03:30 03:45 11/17/18 03:59 Ondansetron 4 mg BRIDGE ORDER 11/17/18 HCl (Zofran PRN IV 05:00 Inj) NAUSEA/VOMITI 11/18/18 04:59 NG 650 mg ER BRIDGE 11/17/18 Acetaminophen PRN PO 05:00 (Tylenol .MILD PAIN 11/18/18 04:59 Tab) 1-3 OR TEMP Sodium 1,000 ml @ Q10H IV 11/17/18 Chloride 100 mls/hr 05:03 IV Flush 3 ml PER 11/17/18 (NS 3 ml) PROTOCOL IV 05:30 650 mg Q6H PRN 11/17/18 Acetaminophen PO .PAIN 1-3 05:30 (Tylenol OR TEMP Tab) 0.5 mg Q4H PRN 11/17/18 Hydromorphone IV .SEVERE 05:30 HCl PAIN 7-10 (Dilaudid) Docusate 100 mg Q12H PRN 11/17/18 Sodium PO 05:30 (Colace) .CONSTIPATION Bisacodyl 5 mg DAILY PRN 11/17/18 (Dulcolax) PO 05:30 .CONSTIPATION 50 ml @ Q12 IVPB 11/17/18 Meropenem/Sod 100 mls/hr 09:00 ium Chloride Procedures/MDM EKG, MONITORS, & DIAGNOSTIC IMAGING: CT abdomen and pelvis: IMPRESSION: 1. 1 cm obstructing left ureter vesicle junction calcified calculus with severe left hydronephrosis and hydroureter. 2. No change in the left renal nonobstructing calculi and cortical nephroliths. 3. No change in the multiple right renal nonobstructing calcified calculi. No right obstructive uropathy. 4. Left-sided colonic diverticulosis without CT evidence of diverticulitis. 5. Small free fluid in the left lower quadrant of the abdomen. No evidence of abscess or free air. 6. Status post prior cholecystectomy without biliary ductal dilation. 7. Stable moderate splenomegaly. 8. Small left pleural effusion. Left basilar consolidation l consistent with atelectasis. RPTAT:AAJJ LAB INTERPRETATION: I reviewed the laboratory testing and it shows mild renal insufficiency that is slightly worse than baseline MEDICAL DECISION MAKING: The patient presents to the emergency room with persistent left-sided flank pain. The patient was recently treated for urinary tract infection. My concern is that the patient may have an infected stone. For this reason I do believe repeat CT imaging would be appropriate. ER COURSE: * I reviewed the patient's electronic medical record. The patient has a urine culture during recent visit that showed E. coli. The patient was sensitive to ampicillin, cephalosporin, cefotaxime, gentamicin, nitrofurantoin and tobramycin. Resistant to ciprofloxacin, levofloxacin and Bactrim * Based on the sensitivities the patient was given ceftriaxone however shortly after the dose the patient had some redness and irritation and itching around the injection site. This was discontinued and the patient was given Benadryl. No further allergic signs or symptoms. * Azactam was provided and the patient tolerated this well. Based on the patient's * Resistant pattern, allergies to Levaquin and ceftriaxone I believe inpatient hospitalization would be appropriate. Additionally the patient has a ureteral stone. Patient needs semiurgent urology consultation for likely retrieval. I discussed the case with the admitting team and they will contact Dr. Del Toro first thing in the morning. A [employer] page has been sent to Dr. Del Toro as well. * Patient is hemodynamically stable. CONSULTATION: Urology: Dr. Del Toro as documented above DISPOSITION PLAN: Accepting care team and consultations: I discussed the current laboratory data, diagnostic imaging and emergency care provided. Admitting team: Dr. Marvin Admitting team indication: Insurance directed Departure Diagnosis: Primary Impression: Left ureteral stone Additional Impressions: Urinary tract infection Urinary tract infection type: site unspecified Hematuria presence: with hematuria Qualified Codes: N39.0 - Urinary tract infection, site not specified; R31.9 - Hematuria, unspecified Acute renal insufficiency Condition: Stable RAFAEL DAO MD Nov 17, 2018 05:22
[2018-11-17] MEDS ORDERED: DOCUSATE SODIUM 100 MG CAP PO PRN (05:30)
[2018-11-17] MEDS ORDERED: BISACODYL (EC) 5 MG TAB PO PRN (05:30)
[2018-11-17] MEDS ORDERED: NACL 0.9% 3 ML SYG IV SCH (05:30)
[2018-11-17 06:21] VITALS: Ht 157.5 cm; Wt 106.9 kg
[2018-11-17 06:36] VITALS: BP 107/52; PULSE 77; RESP 18
[2018-11-17] MEDS: LEVOTHYROXINE 75 MCG TAB PO SCH (07:00)
[2018-11-17] MEDS: SOD CHLORIDE 0.9% 1,000 ML IV SCH ×3 (07:07→17:37)
[2018-11-17] MEDS: HYDROmorphONE 0.5 MG/0.5 ML SYG IV PRN (07:36)
[2018-11-17] MEDS: FERROUS SULFATE (EC) 325 MG TAB PO SCH ×2 (08:55→20:17)
[2018-11-17] MEDS: MEROPENEM 1 GM/50ML(PMX) 50 ML IVPB SCH ×2 (08:55→20:18)
[2018-11-17 09:00] VITALS: BP 101/50; PULSE 72; RESP 18
[2018-11-17] MEDS ORDERED: FERROUS SULFATE (EC) 325 MG TAB PO SCH (09:00)
[2018-11-17] MEDS ORDERED: APREMILAST 30 MG PO SCH (09:00)
--- NOTE | 2018-11-17 13:18 | PN ---
Date/Time of Note Date/Time of Note DATE: 11/17/18 TIME: 13:18 Assessment/Plan VTE Prophylaxis Risk score (from Ns)>0 risk: 3 SCD applied (from Nsg): Yes Pharmacological prophylaxis: NA/contraindicated Pharm contraindication: low risk/ambulating Lines/Catheters IV C[facility]from [facility] Peripheral IV Assessment/Plan Hospital Course SUBJECTIVE: Denies any abdominal pain at this time. OBJECTIVE: Physical Exam General: Morbidly obese 68 year-old female lying in bed in no apparent distress. HEENT: Normocephalic, atraumatic. Eyes: Anicteric sclerae, conjunctivae clear. ENT: Nasal septum midline, oral mucosa moist. Neck: Short and obese with increased neck circumference. Respiratory: Bilaterally diminished breath sounds. No use of accessory muscles of respiration. No adventitious breath sounds. Cardiovascular: S1, S2 heard. No murmurs or gallops. Abdomen: Soft, nontender, and nondistended. Bowel sounds positive in all 4 quadrants. Genitourinary: Deferred. Extremities: No cyanosis, no clubbing, no edema. Peripheral pulses palpable. Neurologic: Cranial nerves II through XII grossly intact. The patient is awake, alert, and oriented. Skin: Normal skin turgor. No skin rashes. Labs & Vitals per chart ASSESSMENT & PLAN 68-year-old female with comorbidities including hypertension, hypothyroidism, morbid obesity, obstructive sleep apnea, and prior nephrolithiasis who came to the emergency room with chief complaint of left flank pain times [address] of the abdomen and pelvis showing 1 cm nonobstructing left uretero-vesicular junction calcified calculus with severe left hydronephrosis and hydroureter. The patient's urinalysis was positive with positive leukocyte esterase and urine microscopic WBC of more than 182. The patient was admitted to inpatient setting for further treatment and evaluation. 1. . 1 cm obstructing left ureterovesical junction calcified calculus. -Being followed by urology. -Strain the urine for calculus. -Plan for invasive procedure if conservative management fails. 2. Left-sided pyelonephritis. -Continue antimicrobials. -Await final cultures. 3. Hypothyroidism -Continue Synthroid. 4. Essential hypertension. -Continue antihypertensives. 5. Acute kidney injury. -Etiology could be secondary to urinary outlet obstruction. -Monitor BUN and creatinine closely. -Avoid nephrotoxic medications. 6. Microcytic, hypochromic anemia. -Continue iron supplements. 7. Obstructive sleep apnea. -Nocturnal CPAP. 8. Fluids, electrolytes, and nutrition. -Regular diet. 9. DVT prophylaxis. -Bilateral SCDs. 10. Plan. -Continue empiric antimicrobials. -Await final cultures. -Await urology intervention. The patient was seen in collaboration with Dr. Linder. Result Diagram: 11/17/1821311/17/184 Results 24hrs Laboratory Tests Test 11/17/18 01:59 11/17/18 02:14 11/17/18 02:15 Urine Color MEERA Urine Clarity CLOUDY A Urine pH 5.0 Urine Specific [place] 1.019 Urine Ketones NEGATIVE Urine Nitrite NEGATIVE Urine Bilirubin NEGATIVE Urine Urobilinogen 2+ H Urine Leukocyte Esterase 2+ H Urine Microscopic RBC 5 Urine Microscopic WBC > 182 H Urine Squamous Epithelial Cells FEW Urine Bacteria FEW A Urine Mucus FEW A Urine Hemoglobin 1+ H Urine Glucose NEGATIVE Urine Total Protein 1+ H White Blood Count 9.8 # Red Blood Count 4.38 Hemoglobin 11.0 L Hematocrit 35.0 L Mean Corpuscular Volume 79.9 L Mean Corpuscular Hemoglobin 25.1 L Mean Corpuscular Hemoglobin Concent 31.4 L Red Cell Distribution Width 16.4 H Platelet Count 114 #L Mean Platelet Volume 10.8 H Immature Granulocytes % 0.800 H Neutrophils % 86.4 H Lymphocytes % 5.1 L Monocytes % 6.3 Eosinophils % 1.0 Basophils % 0.4 Nucleated Red Blood Cells % 0.0 Immature Granulocytes # 0.080 H Neutrophils # 8.4 H Lymphocytes # 0.5 L Monocytes # 0.6 Eosinophils # 0.1 Basophils # 0.0 Nucleated Red Blood Cells # 0.0 Sodium Level 139 Potassium Level 3.4 L Chloride Level 99 Carbon Dioxide Level 28 Anion Gap 12 Blood Urea Nitrogen 51 H Creatinine 1.91 H Est Glomerular Filtrat Rate mL/min 26 L Glucose Level 158 Calcium Level 9.3 Prothrombin Time 13.9 Prothrombin Time Ratio 1.1 INR International Normalized Ratio 1.06 Activated Partial Thromboplast Time 32.1 Exam/Review of Systems Exam Vitals Vital Signs Date Temp Pulse Resp B/P (MAP) Pulse Ox O2 O2 Flow FiO2 Time Delivery Rate 11/17/18 98.0 72 18 94 Room Air 09:00 11/17/18 101/50 09:00 (67) Intake and Output 11/16/18 11/16/18 11/17/18 1515:00 23:00 07:00 IntakeIntake Total 15 ml BalanceBalance 15 ml Results Results 24hrs Laboratory Tests Test 11/17/18 01:59 11/17/18 02:14 11/17/18 02:15 Urine Color MEERA Urine Clarity CLOUDY A Urine pH 5.0 Urine Specific [place] 1.019 Urine Ketones NEGATIVE Urine Nitrite NEGATIVE Urine Bilirubin NEGATIVE Urine Urobilinogen 2+ H Urine Leukocyte Esterase 2+ H Urine Microscopic RBC 5 Urine Microscopic WBC > 182 H Urine Squamous Epithelial Cells FEW Urine Bacteria FEW A Urine Mucus FEW A Urine Hemoglobin 1+ H Urine Glucose NEGATIVE Urine Total Protein 1+ H White Blood Count 9.8 # Red Blood Count 4.38 Hemoglobin 11.0 L Hematocrit 35.0 L Mean Corpuscular Volume 79.9 L Mean Corpuscular Hemoglobin 25.1 L Mean Corpuscular Hemoglobin Concent 31.4 L Red Cell Distribution Width 16.4 H Platelet Count 114 #L Mean Platelet Volume 10.8 H Immature Granulocytes % 0.800 H Neutrophils % 86.4 H Lymphocytes % 5.1 L Monocytes % 6.3 Eosinophils % 1.0 Basophils % 0.4 Nucleated Red Blood Cells % 0.0 Immature Granulocytes # 0.080 H Neutrophils # 8.4 H Lymphocytes # 0.5 L Monocytes # 0.6 Eosinophils # 0.1 Basophils # 0.0 Nucleated Red Blood Cells # 0.0 Sodium Level 139 Potassium Level 3.4 L Chloride Level 99 Carbon Dioxide Level 28 Anion Gap 12 Blood Urea Nitrogen 51 H Creatinine 1.91 H Est Glomerular Filtrat Rate mL/min 26 L Glucose Level 158 Calcium Level 9.3 Prothrombin Time 13.9 Prothrombin Time Ratio 1.1 INR International Normalized Ratio 1.06 Activated Partial Thromboplast Time 32.1 Medications Medication Current Medications Ondansetron HCl (Zofran Inj) 4 mg BRIDGE ORDER PRN IV NAUSEA/VOMITING; Start 11/17/18 at 05:00; Stop 11/18/18 at 04:59 Acetaminophen (Tylenol Tab) 650 mg ER BRIDGE PRN PO .MILD PAIN 1-3 OR TEMP; Start 11/17/18 at 05:00; Stop 11/18/18 at 04:59 Sodium Chloride 1,000 ml @ 100 mls/hr Q10H IV Last administered on 11/17/18 07:07; Admin Dose 100 MLS/HR; Start 11/17/18 at 05:03 IV Flush (NS 3 ml) 3 ml PER PROTOCOL IV ; Start 11/17/18 at 05:30 Acetaminophen (Tylenol Tab) 650 mg Q6H PRN PO .PAIN 1-3 OR TEMP; Start 11/17/18 at 05:30 Hydromorphone HCl (Dilaudid) 0.5 mg Q4H PRN IV .SEVERE PAIN 7-10 Last administered on 11/17/18at 07:36; Admin Dose 0.5 MG; Start 11/17/18 at 05:30 Docusate Sodium (Colace) 100 mg Q12H PRN PO .CONSTIPATION; Start 11/17/18 at 05:30 Bisacodyl (Dulcolax) 5 mg DAILY PRN PO .CONSTIPATION; Start 11/17/18 at 05:30 Meropenem/Sodium Chloride 50 ml @ 100 mls/hr Q12 IVPB Last administered on 11/17/18at 08:55; Admin Dose 100 MLS/HR; Start 11/17/18 at 09:00 Levothyroxine Sodium (Synthroid) 75 mcg AC BREAKFAST PO ; Start 11/17/18 at 07:00 Miscellaneous Information 30 mg BID PO ; Start 11/17/18 at 09:00; Status UNV Ferrous Sulfate (Ferrous Sulfate (Ec)) 325 mg BID PO Last administered on 11/17/18at 08:55; Admin Dose 325 MG; Start 11/17/18 at 09:00 Amlodipine Besylate (Norvasc) 10 mg DAILY PO ; Start 11/18/18 at 09:00 JP STANTON NP Nov 17, 2018 13:18
--- NOTE | 2018-11-17 14:06 | CONS ---
Assessment/Plan Assessment/Plan Hospital Course (Demo Recall) 68-year-old female well-known to me for a few years. She is known to have had a history of kidney stones and has undergone multiple procedures for the stones. She presented to the emergency room a few days back with left flank pain. She underwent an ultrasound that showed left hydronephrosis. KUB did not show the stone and she had a urine culture sent and that the grew E. coli resistant to Cipro and Bactrim. The patient apparently was sent home and she returned last night complaining of severe pain again and difficulty urinating and she insisted on having a CAT scan and that indeed did show a 1 cm stone at the left ureterovesical junction. Patient was admitted for further care. Patient is presently comfortable, she has been placed on meropenem. She also has been n.p.o. I will put her on a diet and strain her urine and if she does not pass the stone we will do cystoscopy left ureteroscopy and remove the stone on Monday. Consultation Date/Type/Reason Admit Date/Time November 17, 2018 Date of Consultation: Nov 17, 2018 Type of Consult Urology Reason for Consultation Distal left ureteral stone Requesting Provider: SOTERO ENGLAND Date/Time of Note DATE: 11/17/18 TIME: 13:56 Hx of Present Illness 68-year-old female well-known to me for a few years. She is known to have had a history of kidney stones and has undergone multiple procedures for the stones. She presented to the emergency room a few days back with left flank pain. She underwent an ultrasound that showed left hydronephrosis. KUB did not show the stone and she had a urine culture sent and that the grew E. coli resistant to Cipro and Bactrim. The patient apparently was sent home and she returned last night complaining of severe pain again and difficulty urinating and she insisted on having a CAT scan and that indeed did show a 1 cm stone at the left ureterovesical junction. Patient was admitted for further care Constitutional: chills (A few days back) Eyes: no complaints ENT: no complaints Respiratory: No shortness of breath Cardiovascular: no complaints; No chest pain Gastrointestinal: no complaints Genitourinary: dysuria, flank pain (Left side) Skin: no complaints Neurologic: no complaints Endocrine: no complaints Lymphatic: no complaints Psychological: no complaints Immunologic: no complaints Past Medical History Medical History: hypertension, hypothyroid, other (Anemia) Home Meds Active Scripts Naproxen* (Naprosyn*) 500 Mg Tablet, 500 MG PO BID PRN for PAIN AND/OR INFLA MMATION, #30 TAB Prov:HECTOR GONSALEZ MD 11/14/18 Cephalexin* (Cephalexin*) 500 Mg Capsule, 500 MG PO QID for 7 Days, #28 CAP Prov:HECTOR GONSALEZ MD 11/14/18 Reported Medications Ferrous Sulfate (Ferrous Sulfate) 324 Mg Tablet.dr, 324 MG PO BID for 90 Days, #180 11/17/18 Glucosam/Msm/Chond/Bosw/Hyalur ([id number]-[id number] CAPLET) 1 Each Tab.er.12h, 1 EACH PO DAILY, TAB 04/18/17 Tamsulosin Hcl* (Tamsulosin Hcl*) 0.4 Mg Cap.er.24h, 0.4 MG PO DAILY, CAP 06/02/16 Multivitamins* (Theragran*) 1 Tab Tab, 1 TAB PO DAILY, TAB 06/02/16 Cholecalciferol* (Vitamin D3*) 2,000 Unit Cap, 2000 UNIT PO DAILY, CAP 09/05/15 Hydrochlorothiazide* (Hydrochlorothiazide*) 25 Mg Tab, 25 MG PO DAILY, #30 TAB 09/05/15 Amlodipine Besylate* (Norvasc*) 10 Mg Tablet, 10 MG PO DAILY, TAB 07/27/15 Levothyroxine Sodium* (Levoxyl*) 75 Mcg Tablet, 75 MCG PO AC BREAKFAST, TAB 07/27/15 Potassium Chloride* (Klor-Con*) 10 Meq Tabsr, 10 MEQ PO DAILY, TAB.SA 07/27/15 Aspirin* (Aspirin* (EC)) 81 Mg Tablet.dr, 81 MG PO DAILY, TAB 07/27/15 Losartan Potassium* (Losartan Potassium*) 100 Mg Tablet, 100 MG PO DAILY, TAB 07/27/15 Apremilast (Otezla) 1 Each Tab.ds.pk, 30 MG PO BID 07/27/15 Discontinued Scripts Hydrocodone/Acetaminophen ([place] 5-325 Tablet) 1 Each Tablet, 1 TAB PO Q6H PRN for PAIN, #10 TAB Prov:ANURADHA FRIEND MD 07/21/18 Tamsulosin Hcl* (Flomax*) 0.4 Mg Cap.er.24h, 0.4 MG PO QPM, #7 CAP Prov:LORETA RAMIREZ DO 04/07/18 Ciprofloxacin Hcl* (Ciprofloxacin Hcl*) 500 Mg Tablet, 500 MG PO BID for 7 Days, TAB Prov:LORETA RAMIREZ DO 04/07/18 Amoxicillin/Potassium Clav (Amox-Clav 875-125 mg Tablet) 875-125 mg Tab, 1 TAB PO BID, #12 TAB Prov:CHRISTIANO MARTIN. 11/01/17 Ferrous Sulfate* (Ferrous Sulfate*) 325 Mg Tabec, 325 MG PO BID for 30 Days, #60 TAB 2 Refills Prov:CHRISTIANO MARTIN. 11/01/17 Medications Current Medications Ondansetron HCl (Zofran Inj) 4 mg BRIDGE ORDER PRN IV NAUSEA/VOMITING; Start 11/17/18 at 05:00; Stop 11/18/18 at 04:59 Acetaminophen (Tylenol Tab) 650 mg ER BRIDGE PRN PO .MILD PAIN 1-3 OR TEMP; Start 11/17/18 at 05:00; Stop 11/18/18 at 04:59 Sodium Chloride 1,000 ml @ 100 mls/hr Q10H IV Last administered on 11/17/18at 07:07; Admin Dose 100 MLS/HR; Start 11/17/18 at 05:03 IV Flush (NS 3 ml) 3 ml PER PROTOCOL IV ; Start 11/17/18 at 05:30 Acetaminophen (Tylenol Tab) 650 mg Q6H PRN PO .PAIN 1-3 OR TEMP; Start 11/17/18 at 05:30 Hydromorphone HCl (Dilaudid) 0.5 mg Q4H PRN IV .SEVERE PAIN 7-10 Last administered on 11/17/18at 07:36; Admin Dose 0.5 MG; Start 11/17/18 at 05:30 Docusate Sodium (Colace) 100 mg Q12H PRN PO .CONSTIPATION; Start 11/17/18 at 05:30 Bisacodyl (Dulcolax) 5 mg DAILY PRN PO .CONSTIPATION; Start 11/17/18 at 05:30 Meropenem/Sodium Chloride 50 ml @ 100 mls/hr Q12 IVPB Last administered on 11/17/18at 08:55; Admin Dose 100 MLS/HR; Start 11/17/18 at 09:00 Levothyroxine Sodium (Synthroid) 75 mcg AC BREAKFAST PO ; Start 11/17/18 at 07:00 Miscellaneous Information 30 mg BID PO ; Start 11/17/18 at 09:00; Status UNV Ferrous Sulfate (Ferrous Sulfate (Ec)) 325 mg BID PO Last administered on 11/17/18at 08:55; Admin Dose 325 MG; Start 11/17/18 at 09:00 Amlodipine Besylate (Norvasc) 10 mg DAILY PO ; Start 11/18/18 at 09:00 Allergies: Coded Allergies: ceftriaxone (Verified Allergy, Unknown, rash, itch, 11/17/18) levofloxacin (Unverified Allergy, Unknown, 11/17/18) Past Surgical History Past Surgical Hx: cholecystectomy, other (Multiple ureteroscopy's and laser lithotripsies) Social History Alcohol Use: none Smoking Status: Unknown if ever smoked Drug Use: none Exam/Review of Systems Exam Vitals Vital Signs Date Temp Pulse Resp B/P (MAP) Pulse Ox O2 O2 Flow FiO2 Time Delivery Rate 11/17/18 98.0 72 18 94 Room Air 09:00 11/17/18 101/50 09:00 (67) Intake and Output 11/16/18 11/16/18 11/17/18 1515:00 23:00 07:00 IntakeIntake Total 15 ml BalanceBalance 15 ml Constitutional: alert, oriented Psych: no complaints Head: normocephalic Eyes: nl conjunctiva ENMT: nl external ears & nose Neck: supple, non-tender Respiratory: normal air movement; No wheezing Cardiovascular: No jugular venous distention (JVD) Gastrointestinal: tender (Left lower quadrant), other (Obesity) Genitourinary - Female: No CVA tenderness (Left flank) Extremities: No calf tenderness Neurological: nl mental status Skin: nl turgor Results Result Diagram: 11/17/184 11/17/18 0214 Results 24hrs Laboratory Tests Test 11/17/18 01:59 11/17/18 02:14 11/17/18 02:15 Urine Color MEERA Urine Clarity CLOUDY A Urine pH 5.0 Urine Specific [place] 1.019 Urine Ketones NEGATIVE Urine Nitrite NEGATIVE Urine Bilirubin NEGATIVE Urine Urobilinogen 2+ H Urine Leukocyte Esterase 2+ H Urine Microscopic RBC 5 Urine Microscopic WBC > 182 H Urine Squamous Epithelial Cells FEW Urine Bacteria FEW A Urine Mucus FEW A Urine Hemoglobin 1+ H Urine Glucose NEGATIVE Urine Total Protein 1+ H White Blood Count 9.8 # Red Blood Count 4.38 Hemoglobin 11.0 L Hematocrit 35.0 L Mean Corpuscular Volume 79.9 L Mean Corpuscular Hemoglobin 25.1 L Mean Corpuscular Hemoglobin Concent 31.4 L Red Cell Distribution Width 16.4 H Platelet Count 114 #L Mean Platelet Volume 10.8 H Immature Granulocytes % 0.800 H Neutrophils % 86.4 H Lymphocytes % 5.1 L Monocytes % 6.3 Eosinophils % 1.0 Basophils % 0.4 Nucleated Red Blood Cells % 0.0 Immature Granulocytes # 0.080 H Neutrophils # 8.4 H Lymphocytes # 0.5 L Monocytes # 0.6 Eosinophils # 0.1 Basophils # 0.0 Nucleated Red Blood Cells # 0.0 Sodium Level 139 Potassium Level 3.4 L Chloride Level 99 Carbon Dioxide Level 28 Anion Gap 12 Blood Urea Nitrogen 51 H Creatinine 1.91 H Est Glomerular Filtrat Rate mL/min 26 L Glucose Level 158 Calcium Level 9.3 Prothrombin Time 13.9 Prothrombin Time Ratio 1.1 INR International Normalized Ratio 1.06 Activated Partial Thromboplast Time 32.[address] scan of the abdomen and pelvis: 1. 1 cm obstructing left ureter vesicle junction calcified calculus with severe left hydronephrosis and hydroureter. 2. No change in the left renal nonobstructing calculi and cortical nephroliths. 3. No change in the multiple right renal nonobstructing calcified calculi. No right obstructive uropathy. 4. Left-sided colonic diverticulosis without CT evidence of diverticulitis. 5. Small free fluid in the left lower quadrant of the abdomen. No evidence of abscess or free air. 6. Status post prior cholecystectomy without biliary ductal dilation. 7. Stable moderate splenomegaly. 8. Small left pleural effusion. Left basilar consolidation l consistent with atelectasis. Medications Medication Current Medications Ondansetron HCl (Zofran Inj) 4 mg BRIDGE ORDER PRN IV NAUSEA/VOMITING; Start 11/17/18 at 05:00; Stop 11/18/18 at 04:59 Acetaminophen (Tylenol Tab) 650 mg ER BRIDGE PRN PO .MILD PAIN 1-3 OR TEMP; Start 11/17/18 at 05:00; Stop 11/18/18 at 04:59 Sodium Chloride 1,000 ml @ 100 mls/hr Q10H IV Last administered on 11/17/18at 07:07; Admin Dose 100 MLS/HR; Start 11/17/18 at 05:03 IV Flush (NS 3 ml) 3 ml PER PROTOCOL IV ; Start 11/17/18 at 05:30 Acetaminophen (Tylenol Tab) 650 mg Q6H PRN PO .PAIN 1-3 OR TEMP; Start 11/17/18 at 05:30 Hydromorphone HCl (Dilaudid) 0.5 mg Q4H PRN IV .SEVERE PAIN 7-10 Last administered on 11/17/18at 07:36; Admin Dose 0.5 MG; Start 11/17/18 at 05:30 Docusate Sodium (Colace) 100 mg Q12H PRN PO .CONSTIPATION; Start 11/17/18 at 05:30 Bisacodyl (Dulcolax) 5 mg DAILY PRN PO .CONSTIPATION; Start 11/17/18 at 05:30 Meropenem/Sodium Chloride 50 ml @ 100 mls/hr Q12 IVPB Last administered on 11/17/18at 08:55; Admin Dose 100 MLS/HR; Start 11/17/18 at 09:00 Levothyroxine Sodium (Synthroid) 75 mcg AC BREAKFAST PO ; Start 11/17/18 at 07:00 Miscellaneous Information 30 mg BID PO ; Start 11/17/18 at 09:00; Status UNV Ferrous Sulfate (Ferrous Sulfate (Ec)) 325 mg BID PO Last administered on 11/17/18at 08:55; Admin Dose 325 MG; Start 11/17/18 at 09:00 Amlodipine Besylate (Norvasc) 10 mg DAILY PO ; Start 11/18/18 at 09:00 CRISTIAN CLARK MD Nov 17, 2018 14:06
[2018-11-17 14:44] VITALS: BP 95/50; PULSE 79; RESP 18
[2018-11-17 19:23] VITALS: BP 95/50; PULSE 79; RESP 16
[2018-11-17] MEDS: OTEZLA 30 MG TABLET PO SCH (20:16)
[2018-11-17 20:22] VITALS: PULSE 83
[2018-11-18] MEDS: SOD CHLORIDE 0.9% 1,000 ML IV SCH ×3 (01:03→18:28)
[2018-11-18 02:06] VITALS: BP 118/56; PULSE 84; RESP 16
[2018-11-18] MEDS: LEVOTHYROXINE 75 MCG TAB PO SCH (05:59)
[2018-11-18 07:35] VITALS: BP 119/58; PULSE 69; RESP 18
[2018-11-18] MEDS: ACETAMINOPHEN 325 MG TAB PO PRN (07:52)
[2018-11-18] MEDS: FERROUS SULFATE (EC) 325 MG TAB PO SCH ×2 (09:00→20:39)
[2018-11-18] MEDS: MEROPENEM 1 GM/50ML(PMX) 50 ML IVPB SCH ×2 (09:27→20:37)
[2018-11-18] MEDS: AMLODIPINE 10 MG TAB PO SCH (09:29)
[2018-11-18] MEDS: OTEZLA 30 MG TABLET PO SCH ×2 (09:30→20:38)
--- NOTE | 2018-11-18 12:27 | PN ---
Date/Time of Note Date/Time of Note DATE: 11/18/18 TIME: 12:24 Assessment/Plan VTE Prophylaxis Risk score (from Ns)>0 risk: 3 SCD applied (from Nsg): Yes Pharmacological prophylaxis: NA/contraindicated Pharm contraindication: low risk/ambulating Lines/Catheters IV Catheter Type (from [facility]): Peripheral IV Assessment/Plan Hospital Course SUBJECTIVE: Denies any abdominal pain at this time. OBJECTIVE: Physical Exam General: Morbidly obese 68 year-old female lying in bed in no apparent distress. HEENT: Normocephalic, atraumatic. Eyes: Anicteric sclerae, conjunctivae clear. ENT: Nasal septum midline, oral mucosa moist. Neck: Short and obese with increased neck circumference. Respiratory: Bilaterally diminished breath sounds. No use of accessory muscles of respiration. No adventitious breath sounds. Cardiovascular: S1, S2 heard. No murmurs or gallops. Abdomen: Soft, nontender, and nondistended. Bowel sounds positive in all 4 quadrants. Genitourinary: Deferred. Extremities: No cyanosis, no clubbing, no edema. Peripheral pulses palpable. Neurologic: Cranial nerves II through XII grossly intact. The patient is awake, alert, and oriented. Skin: Normal skin turgor. No skin rashes. Labs & Vitals per chart ASSESSMENT & PLAN 68-year-old female with comorbidities including hypertension, hypothyroidism, morbid obesity, obstructive sleep apnea, and prior nephrolithiasis who came to the emergency room with chief complaint of left flank pain times [address] of the abdomen and pelvis showing 1 cm nonobstructing left uretero-vesicular junction calcified calculus with severe left hydronephrosis and hydroureter. The patient's urinalysis was positive with positive leukocyte esterase and urine microscopic WBC of more than 182. The patient was admitted to inpatient setting for further treatment and evaluation. 1. 1 cm obstructing left ureterovesical junction calcified calculus. -Being followed by urology. -Strain the urine for calculus. -Plan for invasive procedure if conservative management fails. 2. Left-sided pyelonephritis. -Continue antimicrobials. -Await final cultures. 3. Hypothyroidism -Continue Synthroid. 4. Essential hypertension. -Continue antihypertensives. 5. Acute kidney injury. -Etiology could be secondary to urinary outlet obstruction. -Monitor BUN and creatinine closely. -Avoid nephrotoxic medications. 6. Microcytic, hypochromic anemia. -Continue iron supplements. 7. Obstructive sleep apnea. -Nocturnal CPAP. 8. Pre-diabetes. -Hemoglobin A1c 6.0. -Monitor glycemic trends. 9. Dyslipidemia. -Elevated triglycerides and suboptimal HDL. 10. Fluids, electrolytes, and nutrition. -Regular diet. 11. DVT prophylaxis. -Bilateral SCDs. 12. Plan. -Continue empiric antimicrobials. -Await final cultures. -Await urology intervention. The patient was seen in collaboration with Dr. Linder. Result Diagram: 11/18/1831 11/18/1831 Results 24hrs Laboratory Tests Test 11/18/18 05:31 White Blood Count 5.8 # Red Blood Count 4.05 L Hemoglobin 10.1 L Hematocrit 33.3 L Mean Corpuscular Volume 82.2 Mean Corpuscular Hemoglobin 24.9 L Mean Corpuscular Hemoglobin Concent 30.3 L Red Cell Distribution Width 16.6 H Platelet Count 112 L Mean Platelet Volume 11.5 H Immature Granulocytes % 1.400 H Neutrophils % 73.8 Lymphocytes % 11.1 L Monocytes % 10.7 Eosinophils % 2.1 Basophils % 0.9 Nucleated Red Blood Cells % 0.0 Immature Granulocytes # 0.080 H Neutrophils # 4.3 Lymphocytes # 0.6 L Monocytes # 0.6 Eosinophils # 0.1 Basophils # 0.1 Nucleated Red Blood Cells # 0.0 Sodium Level 141 Potassium Level 4.0 Chloride Level 103 Carbon Dioxide Level 29 Anion Gap 9 Blood Urea Nitrogen 46 H Creatinine 1.23 H Est Glomerular Filtrat Rate mL/min 43 L Glucose Level 141 Hemoglobin A1c 6.0 H Calcium Level 9.0 Phosphorus Level 4.0 Magnesium Level 2.4 Total Bilirubin 0.2 Direct Bilirubin 0.00 Indirect Bilirubin 0.2 Aspartate Amino Transf (AST/SGOT) 20 Alanine Aminotransferase (ALT/SGPT) 21 Alkaline Phosphatase 51 Total Protein 6.6 Albumin 3.1 L Globulin 3.50 H Albumin/Globulin Ratio 0.88 Triglycerides Level 181 H Cholesterol Level 111 LDL Cholesterol, Calculated 60 HDL Cholesterol 15 L Cholesterol/HDL Ratio 7.4 Thyroid Stimulating Hormone (TSH) 1.810 Exam/Review of Systems Exam Vitals Vital Signs Date Temp Pulse Resp B/P (MAP) Pulse Ox O2 O2 Flow FiO2 Time Delivery Rate 11/18/18 3.0 11:05 11/18/18 98.0 69 18 119/58 93 Room Air 07:35 (78) 11/17/18 30 20:22 Intake and Output 11/17/18 11/17/18 11/18/18 1515:00 23:00 07:00 IntakeIntake Total 410 ml 1290 ml 1240 ml OutputOutput Total 500 ml 750 ml 900 ml BalanceBalance -90 ml 540 ml 340 ml Results Results 24hrs Laboratory Tests Test 11/18/18 05:31 White Blood Count 5.8 # Red Blood Count 4.05 L Hemoglobin 10.1 L Hematocrit 33.3 L Mean Corpuscular Volume 82.2 Mean Corpuscular Hemoglobin 24.9 L Mean Corpuscular Hemoglobin Concent 30.3 L Red Cell Distribution Width 16.6 H Platelet Count 112 L Mean Platelet Volume 11.5 H Immature Granulocytes % 1.400 H Neutrophils % 73.8 Lymphocytes % 11.1 L Monocytes % 10.7 Eosinophils % 2.1 Basophils % 0.9 Nucleated Red Blood Cells % 0.0 Immature Granulocytes # 0.080 H Neutrophils # 4.3 Lymphocytes # 0.6 L Monocytes # 0.6 Eosinophils # 0.1 Basophils # 0.1 Nucleated Red Blood Cells # 0.0 Sodium Level 141 Potassium Level 4.0 Chloride Level 103 Carbon Dioxide Level 29 Anion Gap 9 Blood Urea Nitrogen 46 H Creatinine 1.23 H Est Glomerular Filtrat Rate mL/min 43 L Glucose Level 141 Hemoglobin A1c 6.0 H Calcium Level 9.0 Phosphorus Level 4.0 Magnesium Level 2.4 Total Bilirubin 0.2 Direct Bilirubin 0.00 Indirect Bilirubin 0.2 Aspartate Amino Transf (AST/SGOT) 20 Alanine Aminotransferase (ALT/SGPT) 21 Alkaline Phosphatase 51 Total Protein 6.6 Albumin 3.1 L Globulin 3.50 H Albumin/Globulin Ratio 0.88 Triglycerides Level 181 H Cholesterol Level 111 LDL Cholesterol, Calculated 60 HDL Cholesterol 15 L Cholesterol/HDL Ratio 7.4 Thyroid Stimulating Hormone (TSH) 1.810 Medications Medication Current Medications Sodium Chloride 1,000 ml @ 100 mls/hr Q10H IV Last administered on 11/18/18at 06:00; Admin Dose 100 MLS/HR; Start 11/17/18 at 05:03 IV Flush (NS 3 ml) 3 ml PER PROTOCOL IV ; Start 11/17/18 at 05:30 Acetaminophen (Tylenol Tab) 650 mg Q6H PRN PO .PAIN 1-3 OR TEMP Last administered on 11/18/18 07:52; Admin Dose 650 MG; Start 11/17/18 at 05:30 Hydromorphone HCl (Dilaudid) 0.5 mg Q4H PRN IV .SEVERE PAIN 7-10 Last administered on 11/17/18 07:36; Admin Dose 0.5 MG; Start 11/17/18 at 05:30 Docusate Sodium (Colace) 100 mg Q12H PRN PO .CONSTIPATION Last administered on 11/18/18 09:37; Admin Dose 100 MG; Start 11/17/18 at 05:30 Bisacodyl (Dulcolax) 5 mg DAILY PRN PO .CONSTIPATION; Start 11/17/18 at 05:30 Meropenem/Sodium Chloride 50 ml @ 100 mls/hr Q12 IVPB Last administered on 11/18/18 09:27; Admin Dose 100 MLS/HR; Start 11/17/18 at 09:00 Levothyroxine Sodium (Synthroid) 75 mcg AC BREAKFAST PO Last administered on 11/18/18 05:59; Admin Dose 75 MCG; Start 11/17/18 at 07:00 Ferrous Sulfate (Ferrous Sulfate (Ec)) 325 mg BID PO Last administered on 11/17/18 08:55; Admin Dose 325 MG; Start 11/17/18 at 09:00 Amlodipine Besylate (Norvasc) 10 mg DAILY PO Last administered on 11/18/18 09:29; Admin Dose 10 MG; Start 11/18/18 at 09:00 Patient Own Medication 1 ea BID PO Last administered on 11/18/18 09:30; Admin Dose 1 EA; Start 11/17/18 at 21:00 JP STANTON NP Nov 18, 2018 12:27
[2018-11-18 14:53] VITALS: BP 116/56; PULSE 73; RESP 18
--- NOTE | 2018-11-18 16:25 | CONS ---
Consult Date/Type/Reason Admit Date/Time Nov 17, 2018 at 04:46 Initial Consult Date 11/17/18 Type of Consultation: Urology Reason for Consultation 1 cm distal left ureteral stone Requesting Provider: SOTERO ENGLAND Date/Time of Note DATE: 11/18/18 TIME: 16:19 Subjective She feels bloated and has pain in the left lower quadrant. Objective Vitals Vital Signs Date Temp Pulse Resp B/P (MAP) Pulse Ox O2 O2 Flow FiO2 Time Delivery Rate 11/18/18 98.7 73 18 116/56 93 Room Air 14:53 (76) 11/18/18 3.0 11:05 11/17/18 30 20:22 Intake and Output 11/17/18 11/17/18 11/18/18 1515:00 23:00 07:00 IntakeIntake Total 410 ml 1290 ml 1240 ml OutputOutput Total 500 ml 750 ml 900 ml BalanceBalance -90 ml 540 ml 340 ml Exam Left lower quadrant tenderness and left flank tenderness. There is no nausea or vomiting. Results/Medications Result Diagram: 11/18/18 0531 11/18/18 0531 Results 24 hrs Laboratory Tests Test 11/18/18 05:31 White Blood Count 5.8 # Red Blood Count 4.05 L Hemoglobin 10.1 L Hematocrit 33.3 L Mean Corpuscular Volume 82.2 Mean Corpuscular Hemoglobin 24.9 L Mean Corpuscular Hemoglobin Concent 30.3 L Red Cell Distribution Width 16.6 H Platelet Count 112 L Mean Platelet Volume 11.5 H Immature Granulocytes % 1.400 H Neutrophils % 73.8 Lymphocytes % 11.1 L Monocytes % 10.7 Eosinophils % 2.1 Basophils % 0.9 Nucleated Red Blood Cells % 0.0 Immature Granulocytes # 0.080 H Neutrophils # 4.3 Lymphocytes # 0.6 L Monocytes # 0.6 Eosinophils # 0.1 Basophils # 0.1 Nucleated Red Blood Cells # 0.0 Sodium Level 141 Potassium Level 4.0 Chloride Level 103 Carbon Dioxide Level 29 Anion Gap 9 Blood Urea Nitrogen 46 H Creatinine 1.23 H Est Glomerular Filtrat Rate mL/min 43 L Glucose Level 141 Hemoglobin A1c 6.0 H Calcium Level 9.0 Phosphorus Level 4.0 Magnesium Level 2.4 Total Bilirubin 0.2 Direct Bilirubin 0.00 Indirect Bilirubin 0.2 Aspartate Amino Transf (AST/SGOT) 20 Alanine Aminotransferase (ALT/SGPT) 21 Alkaline Phosphatase 51 Total Protein 6.6 Albumin 3.1 L Globulin 3.50 H Albumin/Globulin Ratio 0.88 Triglycerides Level 181 H Cholesterol Level 111 LDL Cholesterol, Calculated 60 HDL Cholesterol 15 L Cholesterol/HDL Ratio 7.4 Thyroid Stimulating Hormone (TSH) 1.810 Home Meds Active Scripts Naproxen* (Naprosyn*) 500 Mg Tablet, 500 MG PO BID PRN for PAIN AND/OR INFLAMMATION, #30 TAB Prov:HECOTR GONSALEZ MD 11/14/18 Cephalexin* (Cephalexin*) 500 Mg Capsule, 500 MG PO QID for 7 Days, #28 CAP Prov:HECTOR OGNSALEZ MD 11/14/18 Reported Medications Ferrous Sulfate (Ferrous Sulfate) 324 Mg Tablet.dr, 324 MG PO BID for 90 Days, #180 11/17/18 Glucosam/Msm/Chond/Bosw/Hyalur ([id number] CAPLET) 1 Each Tab.er.12h, 1 EACH PO DAILY, TAB 04/18/17 Tamsulosin Hcl* (Tamsulosin Hcl*) 0.4 Mg Cap.er.24h, 0.4 MG PO DAILY, CAP 06/02/16 Multivitamins* (Theragran*) 1 Tab Tab, 1 TAB PO DAILY, TAB 06/02/16 Cholecalciferol* (Vitamin D3*) 2,000 Unit Cap, 2000 UNIT PO DAILY, CAP 09/05/15 Hydrochlorothiazide* (Hydrochlorothiazide*) 25 Mg Tab, 25 MG PO DAILY, #30 TAB 09/05/15 Amlodipine Besylate* (Norvasc*) 10 Mg Tablet, 10 MG PO DAILY, TAB 07/27/15 Levothyroxine Sodium* (Levoxyl*) 75 Mcg Tablet, 75 MCG PO AC BREAKFAST, TAB 07/27/15 Potassium Chloride* (Klor-Con*) 10 Meq Tabsr, 10 MEQ PO DAILY, TAB.SA 07/27/15 Aspirin* (Aspirin* (EC)) 81 Mg Tablet.dr, 81 MG PO DAILY, TAB 07/27/15 Losartan Potassium* (Losartan Potassium*) 100 Mg Tablet, 100 MG PO DAILY, TAB 07/27/15 Apremilast (Otezla) 1 Each Tab.ds.pk, 30 MG PO BID 07/27/15 Discontinued Scripts Hydrocodone/Acetaminophen ([place] 5-325 Tablet) 1 Each Tablet, 1 TAB PO Q6H PRN for PAIN, #10 TAB Prov:ANURADHA FRIEND MD 07/21/18 Tamsulosin Hcl* (Flomax*) 0.4 Mg Cap.er.24h, 0.4 MG PO QPM, #7 CAP Prov:LORETA RAMIREZ DO 04/07/18 Ciprofloxacin Hcl* (Ciprofloxacin Hcl*) 500 Mg Tablet, 500 MG PO BID for 7 Days, TAB Prov:LORETA RAMIREZ DO 04/07/18 Amoxicillin/Potassium Clav (Amox-Clav 875-125 mg Tablet) 875-125 mg Tab, 1 TAB PO BID, #12 TAB Prov:CHRISTIANO MARTIN 11/01/17 Ferrous Sulfate* (Ferrous Sulfate*) 325 Mg Tabec, 325 MG PO BID for 30 Days, #60 TAB 2 Refills Prov:CHRISTIANO MARTIN 11/01/17 Medications Current Medications Sodium Chloride 1,000 ml @ 100 mls/hr Q10H IV Last administered on 11/18/18 06:00; Admin Dose 100 MLS/HR; Start 11/17/18 at 05:03 IV Flush (NS 3 ml) 3 ml PER PROTOCOL IV ; Start 11/17/18 at 05:30 Acetaminophen (Tylenol Tab) 650 mg Q6H PRN PO .PAIN 1-3 OR TEMP Last administered on 11/18/18 07:52; Admin Dose 650 MG; Start 11/17/18 at 05:30 Hydromorphone HCl (Dilaudid) 0.5 mg Q4H PRN IV .SEVERE PAIN 7-10 Last administered on 11/17/18 07:36; Admin Dose 0.5 MG; Start 11/17/18 at 05:30 Docusate Sodium (Colace) 100 mg Q12H PRN PO .CONSTIPATION Last administered on 11/18/18 09:37; Admin Dose 100 MG; Start 11/17/18 at 05:30 Bisacodyl (Dulcolax) 5 mg DAILY PRN PO .CONSTIPATION; Start 11/17/18 at 05:30 Meropenem/Sodium Chloride 50 ml @ 100 mls/hr Q12 IVPB Last administered on 11/18/18 09:27; Admin Dose 100 MLS/HR; Start 11/17/18 at 09:00 Levothyroxine Sodium (Synthroid) 75 mcg AC BREAKFAST PO Last administered on 11/18/18 05:59; Admin Dose 75 MCG; Start 11/17/18 at 07:00 Ferrous Sulfate (Ferrous Sulfate (Ec)) 325 mg BID PO Last administered on 11/17/18 08:55; Admin Dose 325 MG; Start 11/17/18 at 09:00 Amlodipine Besylate (Norvasc) 10 mg DAILY PO Last administered on 11/18/18 09:29; Admin Dose 10 MG; Start 11/18/18 at 09:00 Patient Own Medication 1 ea BID PO Last administered on 11/18/18 09:30; Admin Dose 1 EA; Start 11/17/18 at 21:00 Assessment/Plan Hospital Course (Demo Recall) 68-year-old female well-known to me for a few years. She is known to have had a history of kidney stones and has undergone multiple procedures for the stones. She presented to the emergency room a few days back with left flank pain. She underwent an ultrasound that showed left hydronephrosis. KUB did not show the stone and she had a urine culture sent and that the grew E. coli resistant to Cipro and Bactrim. The patient apparently was sent home and she returned last night complaining of severe pain again and difficulty urinating and she insisted on having a CAT scan and that indeed did show a 1 cm stone at the left ureterovesical junction. Patient was admitted for further care. Patient is presently comfortable, she does get pain on and off. She has been placed on meropenem. She also has been on a diet and straining her urine and she has not passed the stone. Plan: Cystoscopy left ureteroscopy, laser lithotripsy, insertion of left ureteral JJ stent. I have explained the procedure to the patient, the benefits, the risks, possible complications and she is agreeable to proceed CRISTIAN CLARK MD Nov 18, 2018 16:25
--- NOTE | 2018-11-18 16:26 | RADRPT ---
Vent Rate: 81 bpm RR Interval: 0 msec VT Interval: 168 msec QRS Duration: 82 msec QT Interval: 370 msec QTC Interval: 429 msec P-R-T [place]: 42 - 3 - 64 degrees Sinus rhythm with premature atrial complexes with aberrant conduction Otherwise normal ECG Electronically Signed By: Chan Huggins
[2018-11-18 20:28] VITALS: BP 124/61; PULSE 63; RESP 18
[2018-11-18] MEDS: HYDROmorphONE 0.5 MG/0.5 ML SYG IV PRN (23:02)
[2018-11-19] VITALS (12 sets, daily range): BP systolic 136–178; BP diastolic 45–99; PULSE 60–78; RESP 15–25
[2018-11-19] MEDS: SOD CHLORIDE 0.9% 1,000 ML IV SCH ×2 (06:03→08:26)
[2018-11-19] MEDS: LEVOTHYROXINE 75 MCG TAB PO SCH (06:13)
[2018-11-19] MEDS ORDERED: ETOMIDATE 20 MG INJ ONE (07:00)
[2018-11-19] MEDS: AMLODIPINE 10 MG TAB PO SCH (08:44)
[2018-11-19] MEDS: FERROUS SULFATE (EC) 325 MG TAB PO SCH (08:45)
[2018-11-19] MEDS: ACETAMINOPHEN 325 MG TAB PO PRN (08:45)
[2018-11-19] MEDS: OTEZLA 30 MG TABLET PO SCH (08:46)
[2018-11-19] MEDS: MEROPENEM 1 GM/50ML(PMX) 50 ML IVPB SCH (08:48)
--- NOTE | 2018-11-19 12:47 | PREAC ---
Date/Time of Note Date/Time of Note DATE: 11/19/18 TIME: 12:42 Anesthesia Eval and Record Evaluation Time Pre-Procedure Interview DATE: 11/19/18 TIME: 12:42 Age 68 Sex female NPO: 8 hrs Preoperative diagnosis Kidney stones Planned procedure Cystoscopy, Lt ureteroscopy, laser lithotripsy, insertion of lt ureteral JJ stent Past Medical History Past Medical History: Includes Cardio: HTN, Dyslipidemia Endo: Hypothyroid GI: Morbid obesity Surgery & Anesthesia Issues No known issue Meds Anticoagulation: Yes Beta Carolee within 24 hr: No Reason Beta Carolee not given: Pt. not on B-Carolee Active Scripts Naproxen* (Naprosyn*) 500 Mg Tablet, 500 MG PO BID PRN for PAIN AND/OR INFLAMMATION, #30 TAB Prov:HECTOR GONSALEZ MD 11/14/18 Cephalexin* (Cephalexin*) 500 Mg Capsule, 500 MG PO QID for 7 Days, #28 CAP Prov:HECTOR GONSALEZ MD 11/14/18 Reported Medications Ferrous Sulfate (Ferrous Sulfate) 324 Mg Tablet., 324 MG PO BID for 90 Days, #180 11/17/18 Glucosam/Msm/Chond/Bosw/Hyalur ([id number] CAPLET) 1 Each T ab.er.12h, 1 EACH PO DAILY, TAB 04/18/17 Tamsulosin Hcl* (Tamsulosin Hcl*) 0.4 Mg Cap.er.24h, 0.4 MG PO DAILY, CAP 06/02/16 Multivitamins* (Theragran*) 1 Tab Tab, 1 TAB PO DAILY, TAB 06/02/16 Cholecalciferol* (Vitamin D3*) 2,000 Unit Cap, 2000 UNIT PO DAILY, CAP 09/05/15 Hydrochlorothiazide* (Hydrochlorothiazide*) 25 Mg Tab, 25 MG PO DAILY, #30 TAB 09/05/15 Amlodipine Besylate* (Norvasc*) 10 Mg Tablet, 10 MG PO DAILY, TAB 07/27/15 Levothyroxine Sodium* (Levoxyl*) 75 Mcg Tablet, 75 MCG PO AC BREAKFAST, TAB 07/27/15 Potassium Chloride* (Klor-Con*) 10 Meq Tabsr, 10 MEQ PO DAILY, TAB.SA 07/27/15 Aspirin* (Aspirin* (EC)) 81 Mg Tablet., 81 MG PO DAILY, TAB 07/27/15 Losartan Potassium* (Losartan Potassium*) 100 Mg Tablet, 100 MG PO DAILY, TAB 07/27/15 Apremilast (Otezla) 1 Each Tab.ds.pk, 30 MG PO BID 07/27/15 Discontinued Scripts Hydrocodone/Acetaminophen ([place] 5-325 Tablet) 1 Each Tablet, 1 TAB PO Q6H PRN for PAIN, #10 TAB Prov:ANURADHA FRIEND MD 07/21/18 Tamsulosin Hcl* (Flomax*) 0.4 Mg Cap.er.24h, 0.4 MG PO QPM, #7 CAP Prov:LORETA RAMIREZ DO 04/07/18 Ciprofloxacin Hcl* (Ciprofloxacin Hcl*) 500 Mg Tablet, 500 MG PO BID for 7 Days, TAB Prov:LORETA RAMIREZ DO 04/07/18 Amoxicillin/Potassium Clav (Amox-Clav 875-125 mg Tablet) 875-125 mg Tab, 1 TAB PO BID, #12 TAB Prov:CHRISTIANO MARTIN 11/01/17 Ferrous Sulfate* (Ferrous Sulfate*) 325 Mg Tabec, 325 MG PO BID for 30 Days, #60 TAB 2 Refills Prov:CHRISTIANO MARTIN 11/01/17 Current Medications Sodium Chloride 1,000 ml @ 100 mls/hr Q10H IV Last administered on 11/19/18 06:03; Admin Dose 100 MLS/HR; Start 11/17/18 at 05:03 IV Flush (NS 3 ml) 3 ml PER PROTOCOL IV ; Start 11/17/18 at 05:30 Acetaminophen (Tylenol Tab) 650 mg Q6H PRN PO .PAIN 1-3 OR TEMP Last administered on 11/19/18 08:45; Admin Dose 650 MG; Start 11/17/18 at 05:30 Hydromorphone HCl (Dilaudid) 0.5 mg Q4H PRN IV .SEVERE PAIN 7-10 Last administered on 11/18/18at 23:02; Admin Dose 0.5 MG; Start 11/17/18 at 05:30 Docusate Sodium (Colace) 100 mg Q12H PRN PO .CONSTIPATION Last administered on 11/18/18 09:37; Admin Dose 100 MG; Start 11/17/18 at 05:30 Bisacodyl (Dulcolax) 5 mg DAILY PRN PO .CONSTIPATION; Start 11/17/18 at 05:30 Meropenem/Sodium Chloride 50 ml @ 100 mls/hr Q12 IVPB Last administered on 11/19/18at 08:48; Admin Dose 100 MLS/HR; Start 11/17/18 at 09:00 Levothyroxine Sodium (Synthroid) 75 mcg AC BREAKFAST PO Last administered on 11/18/18at 05:59; Admin Dose 75 MCG; Start 11/17/18 at 07:00 Ferrous Sulfate (Ferrous Sulfate (Ec)) 325 mg BID PO Last administered on 11/19/18at 08:45; Admin Dose 325 MG; Start 11/17/18 at 09:00 Amlodipine Besylate (Norvasc) 10 mg DAILY PO Last administered on 11/19/18at 08:44; Admin Dose 10 MG; Start 11/18/18 at 09:00 Patient Own Medication 1 ea BID PO Last administered on 11/19/18at 08:46; Admin Dose 1 EA; Start 11/17/18 at 21:00 Meds reviewed: Yes Allergies Coded Allergies: ceftriaxone (Verified Allergy, Unknown, rash, itch, 11/17/18) levofloxacin (Unverified Allergy, Unknown, 11/17/18) Allergies Reviewed: Yes Labs/Studies Labs Reviewed: Reviewed by anesthesiologist Result Diagram: 11/19/18 0508 11/19/18 0508 Laboratory Tests 11/19/18 05:08 test: N/A Studies: ECG Pre-procedure Exam Last vitals Vital Signs Date Temp Pulse Resp B/P (MAP) Pulse Ox O2 O2 Flow FiO2 Time Delivery Rate 11/19/18 98.4 68 18 142/65 91 08:14 (90) 11/19/18 Nasal 00:40 Cannula 11/18/18 3.0 11:05 11/17/18 30 20:22 Airway: Adequate mouth opening, Adequate thyromental dist Mallampati: Mallampati II Teeth: Normal Lung: Normal Heart: Normal ASA Physical Status ASA physical status: 3 Emergency: None Planned Anesthetic General/MAC: LMA Planned Pain Management Parenteral pain med Pre-operative Attestations Prior to commencing anesthesia and surgery, the patient was re-evaluated, there was verification of: *The patient's identity *The results of appropriate recent lab work and preoperative vital signs *The above evaluation not changing prior to induction *Anesthetic plan, risk benefits, alternative and complications discussed with patient/family; questions answered; patient/family understands, accepts and wishes to proceed. MARGOT MURRAY MD Nov 19, 2018 12:47
[2018-11-19] MEDS ORDERED: LIDOCAINE 2% 20 ML UROJET SYRINGE ONE (12:50)
[2018-11-19] MEDS ORDERED: MIDAZOLAM 1 MG/ML 2 ML INJ ONE (13:25)
[2018-11-19] MEDS ORDERED: PROPOFOL 20 ML ONE (14:00)
[2018-11-19] MEDS ORDERED: ONDANSETRON 4 MG INJ ONE (14:01)
[2018-11-19] MEDS ORDERED: LIDOCAINE 2% (SDV) 5 ML INJ ONE (14:01)
[2018-11-19] MEDS ORDERED: hydrALAzine 20 MG INJ ONE (14:11)
--- NOTE | 2018-11-19 14:11 | OPR ---
Date/Time of Note Date/Time of Note DATE: 11/19/18 TIME: 14:03 Operative Report Procedure Date: Nov 19, 2018 Preoperative Diagnosis Distal left ureteral stone 1 cm in size Postoperative Diagnosis Patient must have passed the stone. No ureteral stone seen on ureteroscopy Operation/Procedure Performed Cystoscopy and left ureteroscopy Surgeon see signature line Supervisor Dock chief medical technologist Luis Second Supervisor Dock: A Anesthesia Type: general Anesthesiologist: MARGOT MURRAY MD Estimated Blood Loss: none Transfusion none Specimen Urine for culture and sensitivity Grafts/Implants none Complications none Pt Condition Post Procedure: stable Disposition: PACU Indications Distal left ureteral stone 1 cm in size with obstruction and hydronephrosis Procedure Description The patient was brought to the operating room and given general anesthesia. She was positioned in the lithotomy position. The genital area was prepped and draped in the usual sterile manner. Timeout was done at the patient was identified by her name, birthdate, the procedure on the side of the procedure. The patient has been on antibiotics and did not receive any additional ones. #21 Greek cystoscope sheath was introduced into the bladder and urine was collected for culture and sensitivity. The left ureteral orifice was identified and then cannulated with a 5 Greek open-ended ureteral catheter. Fluoroscopy was used. No radiopaque stone could be seen. A 0.035 safety wire was passed through the open ended all the way up to the kidney at then the open-ended was reintroduced through the second working channel and a 0 the 035 sensor wire was also passed up to the kidney. The sensor wire was used as a safety wire at the zip wire was used to advance on it the rigid ureteroscope and the rigid ureteroscope was passed from the bladder all the way up to the kidney. There was no stone seen in the whole ureter. She must have passed the stone. Therefore I decided to terminate the procedure I remove the wires and emptied the bladder and patient was then transferred to the recovery room in a stable and satisfactory condition. CRISTIAN CLARK MD Nov 19, 2018 14:11
--- NOTE | 2018-11-19 14:15 | PAC ---
Date/Time of Note Date/Time of Note DATE: 11/19/18 TIME: 14:14 Post-Anesthesia Notes Post-Anesthesia Note Last documented vital signs Vital Signs Date Temp Pulse Resp B/P (MAP) Pulse Ox O2 O2 Flow FiO2 Time Delivery Rate 11/19/18 98.4 68 18 142/65 91 08:14 (90) 11/19/18 Nasal 00:40 Cannula 11/18/18 3.0 11:05 11/17/18 30 20:22 Activity: WNL Respiratory function: WNL Cardiovascular function: WNL Mental status: Baseline Pain reasonably controlled: Yes Hydration appropriate: Yes Nausea/Vomiting absent: Yes Comments BP:164/78, P:88, Spo2:100%, t:98,8 MARGOT MURRAY MD Nov 19, 2018 14:14
[2018-11-19] MEDS ORDERED: ONDANSETRON 4 MG INJ IV PRN (14:30)
[2018-11-19] MEDS ORDERED: METOCLOPRAMIDE 10 MG INJ IV PRN (14:30)
[2018-11-19] MEDS ORDERED: DIPHENHYDRAMINE 50 MG INJ IV PRN (14:30)
[2018-11-19] MEDS ORDERED: FENTAnyl 50 MCG/ML VIAL IV PRN (14:30)
[2018-11-19] MEDS ORDERED: hydrALAzine 20 MG INJ IV PRN (14:30)
[2018-11-19] MEDS ORDERED: HYDROmorphONE 1 MG/5 ML IV SYRINGE IV PRN ×2 (14:30)
[2018-11-19] MEDS ORDERED: LABETALOL HCL 20MG INJ IV PRN (14:30)
[2018-11-19] MEDS ORDERED: morphine 2 MG INJ ONE (14:39)
[2018-11-19] MEDS ORDERED: morphine (1 MG/ML) 10ML SYRINGE IV PRN ×2 (15:00)
--- NOTE | 2018-11-19 16:01 | DS ---
Date/Time of Note Date/Time of Note DATE: 11/19/18 TIME: 15:56 Discharge Summary Admission/Discharge Info Admit Date/Time Nov 17, 2018 at 04:46 Discharge Date/Time Patient Condition: Good Consults Dr Del Toro Procedures Cystoscopy Did not require stent Hx of Present Illness 68-year-old female admitted with flank pain. As an outpatient had already seen urology and was started on biotics. Hospital Course Hospitalist coverage/hospital course Admitted and evaluated for acute renal failure/obstructive uropathy due to nephrolithiasis and complicated cystitis. Seen by urology. Culture here shows less than 10,000 units. Creatinine has gone from 1.9 down to 0.9- Renal failure resolved. Patient was taken to the OR for cystoscopy, however no stent was placed/required. likely passed the stone on her own. Stable and fit for discharge. Acute renal failure Obstructive uropathy Nephrolithiasis left 1 cm UVJ junction stone Chronic nephrolithiasis Anemia Chronic JUAN Hypothyroidism Metabolic syndrome/morbid obesity Recent acute complicated E. coli cystitis on Cipro to continue/finish at home Diarrhea, avoid dairy, add Culturelle; consolidate antibiotics. If doesnt resolve consider outpatient C diff testing. Home Meds Active Scripts Naproxen* (Naprosyn*) 500 Mg Tablet, 500 MG PO BID PRN for PAIN AND/OR INFLAMMATION, #30 TAB Prov:HECTOR GONSALEZ MD 11/14/18 Cephalexin* (Cephalexin*) 500 Mg Capsule, 500 MG PO QID for 7 Days, #28 CAP Prov:HECTOR GONSALEZ MD 11/14/18 Reported Medications Ferrous Sulfate (Ferrous Sulfate) 324 Mg Tablet.dr, 324 MG PO BID for 90 Days, #180 11/17/18 Glucosam/Msm/Chond/Bosw/Hyalur ([id number] CAPLET) 1 Each Tab.er.12h, 1 EACH PO DAILY, TAB 04/18/17 Tamsulosin Hcl* (Tamsulosin Hcl*) 0.4 Mg Cap.er.24h, 0.4 MG PO DAILY, CAP 06/02/16 Multivitamins* (Theragran*) 1 Tab Tab, 1 TAB PO DAILY, TAB 06/02/16 Cholecalciferol* (Vitamin D3*) 2,000 Unit Cap, 2000 UNIT PO DAILY, CAP 09/05/15 Hydrochlorothiazide* (Hydrochlorothiazide*) 25 Mg Tab, 25 MG PO DAILY, #30 TAB 09/05/15 Amlodipine Besylate* (Norvasc*) 10 Mg Tablet, 10 MG PO DAILY, TAB 07/27/15 Levothyroxine Sodium* (Levoxyl*) 75 Mcg Tablet, 75 MCG PO AC BREAKFAST, TAB 07/27/15 Potassium Chloride* (Klor-Con*) 10 Meq Tabsr, 10 MEQ PO DAILY, TAB.SA 07/27/15 Aspirin* (Aspirin* (EC)) 81 Mg Tablet.dr, 81 MG PO DAILY, TAB 07/27/15 Losartan Potassium* (Losartan Potassium*) 100 Mg Tablet, 100 MG PO DAILY, TAB 07/27/15 Apremilast (Otezla) 1 Each Tab.ds.pk, 30 MG PO BID 07/27/15 Discontinued Scripts Hydrocodone/Acetaminophen (Holden 5-325 Tablet) 1 Each Tablet, 1 TAB PO Q6H PRN for PAIN, #10 TAB Prov:ANURADHA FRIEND MD 07/21/18 Tamsulosin Hcl* (Flomax*) 0.4 Mg Cap.er.24h, 0.4 MG PO QPM, #7 CAP Prov:LORETA RAMIREZ DO 04/07/18 Ciprofloxacin Hcl* (Ciprofloxacin Hcl*) 500 Mg Tablet, 500 MG PO BID for 7 Days, TAB Prov:LORETA RAMIREZ DO 04/07/18 Amoxicillin/Potassium Clav (Amox-Clav 875-125 mg Tablet) 875-125 mg Tab, 1 TAB PO BID, #12 TAB Prov:CHRISTIANO MARTIN 11/01/17 Ferrous Sulfate* (Ferrous Sulfate*) 325 Mg Tabec, 325 MG PO BID for 30 Days, #60 TAB 2 Refills Prov:CHRISTIANO MARTIN 11/01/17 Primary Care Provider Not On Staff Doctor Time spent on discharge: > 30 minutes Pending Labs Laboratory Tests Test 11/19/18 05:08 White Blood Count 4.8 10^3/ul (4.8-10.8) Red Blood Count 4.01 10^6/ul (4.20-5.40) Hemoglobin 10.0 g/dl (12.0-16.0) Hematocrit 32.7 % (37.0-47.0) Mean Corpuscular Volume 81.5 fl (82.0-101.0) Mean Corpuscular Hemoglobin 24.9 pg (29.0-33.0) Mean Corpuscular Hemoglobin Concent 30.6 g/dl (32.0-37.0) Red Cell Distribution Width 16.3 % (11.5-14.5) Platelet Count 113 10^3/UL (140-415) Mean Platelet Volume 11.8 fl (7.4-10.4) Immature Granulocytes % 3.600 % (0.001-0.429) Neutrophils % 65.9 % (39.0-77.0) Lymphocytes % 13.8 % (15.0-51.0) Monocytes % 13.2 % (0.0-11.0) Eosinophils % 2.9 % (0.0-7.0) Basophils % 0.6 % (0.0-2.0) Nucleated Red Blood Cells % 0.0 /100WBC (0.0-0.0) Immature Granulocytes # 0.170 10^3/ul (0.0-0.031) Neutrophils # 3.2 10^3/ul (1.6-7.5) Lymphocytes # 0.7 10^3/ul (0.8-2.9) Monocytes # 0.6 10^3/ul (0.3-0.9) Eosinophils # 0.1 10^3/ul (0.0-0.5) Basophils # 0.0 10^3/ul (0.0-0.1) Nucleated Red Blood Cells # 0.0 10^3/ul (0.0-0.0) Sodium Level 143 mmol/L (135-144) Potassium Level 4.2 mmol/L (3.5-5.1) Chloride Level 107 mmol/L (97-110) Carbon Dioxide Level 30 mmol/L (21-31) Anion Gap 6 (5-13) Blood Urea Nitrogen 30 mg/dl (7-20) Creatinine 0.85 mg/dl (0.44-1.00) Est Glomerular Filtrat Rate mL/min > 60 mL/min (>60) Glucose Level 128 mg/dl (70-220) Calcium Level 9.4 mg/dl (8.4-10.2) Phosphorus Level 3.4 mg/dl (2.5-4.9) Magnesium Level 2.1 mg/dl (1.7-2.5) LEON DONAHUE MD Nov 19, 2018 16:01
--- NOTE | 2018-11-19 16:03 | PDOCDIS ---
Discharge Instructions CONDITION [id number] Patient Condition: [id number] Stable HOME CARE INSTRUCTIONS: [id number] Diet Instructions: [id number] Regular ACTIVITY: [id number] Activity Restrictions: [id number] Slowly Increase Activity Do not Drive FOLLOW UP/APPOINTMENTS Follow-up Plan Appointment primary 1 week. Ask primary to obtain discharge summary from medical records Appointment Dr. Del Toro 1 week: Microbiology: [phone] LEON DONAHUE MD Nov 19, 2018 16:03
[2018-11-19] MEDS ORDERED: ACET325T33 PO (16:05)
[2018-11-19] MEDS ORDERED: Patient Own Medication PO (16:05)
[2018-11-19] MEDS ORDERED: LOPERAMIDE (0.2 MG/ML PO SYG) PO ONE (17:30)
== END 2018-11-19 16:25 | disposition home or self-care (01) | DRG 690 ==
LOC: E/R 00:55 → 2NE 04:46
PROVIDERS: ADMIT Family Medicine; ATTEND Internal Medicine
PROC: 0TJ98ZZ Inspection of Ureter, Via Natural or Artificial Opening Endoscopic (ICD-10-PCS; principal; 2018-11-19 12:30)
DX: N13.6 Pyonephrosis (principal); Z68.41 Body mass index [BMI] 40.0-44.9, adult; N17.9 Acute kidney failure, unspecified; E66.01 Morbid (severe) obesity due to excess calories; G47.33 Obstructive sleep apnea (adult) (pediatric); E78.5 Hyperlipidemia, unspecified; I10 Essential (primary) hypertension; B18.2 Chronic viral hepatitis C; E11.9 Type 2 diabetes mellitus without complications; D50.9 Iron deficiency anemia, unspecified; E03.9 Hypothyroidism, unspecified; E88.81 Metabolic syndrome and other insulin resistance; R19.7 Diarrhea, unspecified; B96.20 Unspecified Escherichia coli [E. coli] as the cause of diseases classified elsewhere; Z87.891 Personal history of nicotine dependence; Z90.49 Acquired absence of other specified parts of digestive tract
CPT/HCPCS: 36415; 71045; 74018; 74176; 74430; 80048; 80053; 80061; 81001; 83036; 83735; 84100; 84443; 85025; 85610; 85730; 87086; 93005; 94660; 96365; 96375; J0360; J0696; J1170; J1200; J2185; J2250; J2270; J2405; J3010; J7030